=== PATIENT | female | born 1975 ===

== ENCOUNTER 2016-12-07 04:18 | Inpatient (IN) | payer MEDICAID ==
--- NOTE | 2016-12-07 04:38 | ED PDOC ---
Arrival/HPI - General Chief Complaint: Medical Clearance Time Seen by Provider: 12/07/16 04:24 Historian: Patient - History of Present Illness Narrative History of Present Illness (Text): 12/07/16 04:31 Sally Grady is a 41 year old female who presents to the emergency department from [facility]. Patient was accepted under 's service prior to transfer. At emergency department, patient denies any somatic complaints. Symptom Course: Unchanged Severity Level: Mild Activities at Onset: Light Past Medical History - Provider Review Nursing Documentation Reviewed: Yes - Infectious Disease Hx of Infectious Diseases: None - Cardiac Hx Cardiac Disorders: No Hx Hypertension: Yes - Pulmonary Hx Tuberculosis: No - Neurological HX Cerebrovascular Accident: No Hx Seizures: No - HEENT Hx HEENT Disorder: Yes - Renal Hx Renal Disorder: No - Endocrine/Metabolic Hx Hypothyroidism: Yes - Hematological/Oncological Hx Cancer: No - Integumentary Hx Dermatological Disorder: No - Musculoskeletal/Rheumatological Hx Arthritis: Yes - Gastrointestinal Hx Gastrointestinal Disorders: Yes Hx Gastroesophageal Reflux: Yes - Genitourinary/Gynecological Hx Sexually Transmitted Diseases: No - Psychiatric Hx Anxiety: Yes Hx Depression: Yes Hx Post Traumatic Stress Disorder: Yes Hx Schizophrenia: Yes Hx Substance Use: No - Surgical History Hx Tonsillectomy: Yes - Anesthesia Hx Anesthesia: Yes Hx Anesthesia Reactions: No Hx Malignant Hyperthermia: No - Suicidal Assessment Feels Threatened In Home Enviroment: No Family/Social History - Physician Review Nursing Documentation Reviewed: Yes Family/Social History: No Known Family HX Smoking Status: Heavy Smoker > 10 Cigarettes Daily Hx Alcohol Use: Yes (''Occassional'') Hx Substance Use: No Allergies/Home Meds Allergies/Adverse Reactions: Allergies cefazolin sodium [From Anc] Allergy (Verified 12/07/16 06:42) RASH Penicillins Allergy (Verified 12/07/16 06:42) RASH Home Medications: Home Meds Medication Instructions Recorded Confirmed Zolpidem [Ambien] 10 mg PO HS 10/13/16 12/07/16 Calcium Carbonate [Oscal] 500 mg PO DAILY 12/04/16 12/06/16 Topamax 100 mg PO BID 12/04/16 12/07/16 Cyclobenzaprine [Cyclobenzaprine 10 mg PO TID 12/07/16 12/07/16 HCl] Furosemide [Lasix] 20 mg PO DAILY 12/07/16 12/07/16 Gabapentin [Neurontin] 100 mg PO TID 12/07/16 12/07/16 K-Dur 20 mEq ER Tab 10 meq PO DAILY 12/07/16 12/07/16 Levothyroxine [Synthroid] 112 mcg PO 0630 12/07/16 12/07/16 Montelukast [Singulair] 10 mg PO DAILY 12/07/16 12/07/16 Sulfamethoxazole/Trimethoprim 1 tab PO BID 12/07/16 12/07/16 [Bactrim DS 800 mg-160 mg] Topiramate [Topamax] 50 mg PO BID 12/07/16 12/07/16 Tylenol with Codeine #3 Tablet 1 tab PO TID PRN 12/07/16 12/07/16 traZODone [Desyrel] 50 mg PO HS 12/07/16 12/07/16 Review of Systems - Physician Review All systems were reviewed & negative as marked: Yes - Review of Systems Constitutional: Normal. absent: Fatigue, Fevers Respiratory: Normal. absent: SOB, Cough, Sputum Cardiovascular: Normal. absent: Chest Pain, Palpitations Gastrointestinal: Normal. absent: Diarrhea, Nausea, Vomiting Neurological: Normal. absent: Dizziness Psychiatric: Other (schizophrenia ) Physical Exam Vital Signs Reviewed: Yes Vital Signs Temp Pulse Resp BP Pulse Ox 12/07/16 16:10 107 H 136/86 12/07/16 08:41 132/86 12/07/16 07:36 98.8 F 95 H 20 132/86 12/07/16 06:40 16 12/07/16 04:29 98.8 F 101 H 18 112/76 99 Temperature: Afebrile Blood Pressure: Normal Pulse: Tachycardic Respiratory Rate: Normal Appearance: Positive for: Well-Appearing, Non-Toxic, Comfortable Pain Distress: None Mental Status: Positive for: Alert and Oriented X 3 - Systems Exam Head: Present: Atraumatic, Normocephalic Pupils: Present: PERRL Conjunctiva: Present: Normal Mouth: Present: Moist Mucous Membranes Respiratory/Chest: Present: Clear to Auscultation, Good Air Exchange. No: Respiratory Distress, Accessory Muscle Use Cardiovascular: Present: Regular Rate and Rhythm, Normal S1, S2. No: Murmurs Abdomen: Present: Normal Bowel Sounds. No: Tenderness, Distention, Peritoneal Signs Upper Extremity: Present: Normal Inspection. No: Cyanosis, Edema Lower Extremity: Present: Normal Inspection. No: Edema Neurological: Present: GCS=15, CN II-XII Intact, Speech Normal, Motor Func Grossly Intact, Normal Sensory Function Psychiatric: Present: Alert, Oriented x 3. No: Normal Affect (flat affect ) Medical Decision Making ED Course and Treatment: 12/07/16 04:38 Impression: A 41 year old female who presents to the emergency department [facility]. Progress Notes: 12/07/16 04:39 Patient is medically cleared for admission to the the hospital. Will admit patient. - Medication Orders Current Medication Orders: Acetaminophen (Tylenol 325mg Tab) 650 mg PO Q6H PRN PRN Reason: Pain, Mild (1-3) Al Hydrox/Mg Hydrox/Simethicone (Maalox Plus 30 Ml) 30 ml PO DAILY PRN PRN Reason: Upset Stomach Albuterol (Ventolin Hfa 90 Mcg/Actuation (8 G)) 2 puff IH [id number] PRN PRN Reason: Wheezing Bupropion HCl (Wellbutrin Xl) 300 mg PO DAILY [facility] Last Admin: 12/07/16 08:41 Dose: 300 mg Cyclobenzaprine HCl (Flexeril) 10 mg PO TID [facility] Last Admin: 12/07/16 17:52 Dose: 10 mg Docusate Sodium (Colace) 100 mg PO BID [facility] Last Admin: 12/07/16 17:52 Dose: 100 mg Furosemide (Lasix) 20 mg PO DAILY [facility] Last Admin: 12/07/16 08:41 Dose: 20 mg Gabapentin (Neurontin) 100 mg PO TID [facility] PRN Reason: Protocol Last Admin: 12/07/16 17:52 Dose: 100 mg Levothyroxine Sodium (Synthroid) 112 mcg PO ACB [facility] Last Admin: 12/07/16 08:41 Dose: 112 mcg Lorazepam (Ativan) 0.5 mg PO TID [facility] PRN Reason: Protocol Last Admin: 12/07/16 17:53 Dose: 0.5 mg Magnesium Hydroxide (Milk Of Magnesia) 30 ml PO DAILY PRN PRN Reason: Constipation Montelukast Sodium (Singulair) 10 mg PO HS [facility] Nicotine (Nicoderm Cq) 1 patch TD DAILY [facility] Potassium Chloride (Klor-Con 10) 10 meq PO BRK [facility] Last Admin: 12/07/16 09:15 Dose: 10 meq Fluticasone/Salmeterol (Advair Diskus 500/50) 1 puff INH Q12 [facility] Last Admin: 12/07/16 17:54 Dose: 1 puff Topiramate (Topamax) 50 mg PO BID [facility] PRN Reason: Protocol Last Admin: 12/07/16 17:52 Dose: 50 mg Trazodone HCl (Desyrel) 50 mg PO HS [facility] Ziprasidone (Geodon Cap) 20 mg PO BID [facility] PRN Reason: Protocol Last Admin: 12/07/16 17:53 Dose: 20 mg Ziprasidone (Geodon Cap) 20 mg PO HS [facility] PRN Reason: Protocol Zolpidem Tartrate (Ambien) 5 mg PO HS PRN; Protocol PRN Reason: Insomnia - Scribe Statement The provider has reviewed the documentation as recorded by the Matilde Washington Provider Attestation: All medical record entries made by the Matilde were at my direction and personally dictated by me. I have reviewed the chart and agree that the record accurately reflects my personal performance of the history, physical exam, medical decision making, and the department course for this patient. I have also personally directed, reviewed, and agree with the discharge instructions and disposition. Disposition/Present on Arrival - Present on Arrival Any Indicators Present on Arrival: No History of DVT/PE: No History of Uncontrolled Diabetes: No Urinary Catheter: No History of Decub. Ulcer: No History Surgical Site Infection Following: None - Disposition Have Diagnosis and Disposition been Completed?: Yes Diagnosis: Depression Disposition: HOSPITALIZED Disposition Time: 04:40 Condition: FAIR
[2016-12-07] MEDS ORDERED: Magnesium Hydroxide Susp 30 ml UD PO PRN (06:40)
[2016-12-07] MEDS ORDERED: Alum-Mag Hydrox-Simethicone Susp (30 mL) PO PRN (06:40)
[2016-12-07] MEDS: Levothyroxine 112 MCG TAB PO SCH (08:41)
[2016-12-07] MEDS: buPROPion 300 mg/24 Hours XL Tab PO SCH (08:41)
[2016-12-07 08:46] LABS: CHOLESTEROL 170 mg/dL (130-200); GLUCOSE,FASTING 98 mg/dL (65-110)
[2016-12-07 09:03] LABS: FREE T4 0.95 ng/dL (0.78-2.19)
[2016-12-07] MEDS: Potassium Chloride 10 mEq ER Tab PO SCH (09:15)
[2016-12-07 09:17] LABS: THYROID STIMULATING HORMONE 15.4 mIU/mL (0.46-4.68)
--- NOTE | 2016-12-07 15:19 | PCM.PSYCH ---
Initial Psychiatric Evaluation - Initial Psychiatric Evaluation Type of Admission: Voluntary Legal Status: Capacity (Patient has capacity to sign consent for treatment) Chief Complaint (in patient's own words): "you know my head was not clear, I have learning disabilities..." Patient's Reaction to Hospitalization: pt was admitted for psychosis, inability to function, pt was on catatonic stage. History of Present Illness and Precipitating Events: shortly patient is 41 years old female not known previous history of psychiatric history, not known previous psychiatric admissions, patient has some new group cognitive disorder, possible learning disabilities, patient currently under care of [facility] [place] outpatient clinic, came to the emergency at [facility] saying that she "my head is not clear" patient presented to be disorganized, flat affect, in catatonic stage, patient was transferred to [facility] because [facility] had no beds available. Patient needs to have further evaluation, stabilization, medications adjustment. pt was seen at the tx team meeting, pt presented in catatonic stage, flat affect , had difficulties to express herself, pt also has poverty of speech and thoughts, thought blocking. pt obviously has neurocognitive deficit and some learning disabilities, pt was going to special ED class. pt has acceptable personal hygiene, at the same time seems to be careless about her appearance. Patient has fair ADLs. Patient ambulates with a walker, patient has unstable gait, patient seems to be obese. Patient said "I was hearing voices dear are like a game" patient reports that voices are positive and telling her to do good stuff, patient has tendency of following on voices. Patient also observed to be internally preoccupied responding to internal stimuli patient also was keep watching her back it says like he shouldn't has some hallucinations during the interview, patient also requested door to be closed presented to be paranoid. pt reported to be depressed, reports that "sometimes I want to ", patient denied any thoughts of killing herself denied intent. Patient reported being compliant with the medications, patient reported that Abilify was not that helpful wants to try something else [place] was offered, risk, benefits, alternatives explained. Patient also was on Neurontin 300 mg 3 times a day, Colace 100 mg twice a day, Synthroid 100 g daily, Protonix 40 mg daily pantoprazole 40 mg daily Topamax twice a day and Wellbutrin 300 mg daily and Ambien 10 mg at the nighttime. Patient is willing to adjust her medications. Vision denied using drugs, reported smoking cigars pack a day counseling provided, nicotine patch offered. Patient was not able to provide information about previous hospitalizations. Denied family history of mental illness Patient denied history of being abused Has multiple medical issues including obesity, unsteady gait, sleep apnea. One EKG patient has QTc prolongation, cardiology, pulmonology, medical team will be involved. geodone is dose dependent QTC prolognation, pt will be on small dose. Lab Results 12/07/16 08:00: Free T4 0.95, TSH 3rd Generation 15.40 H 12/07/16 08:00: Fasting Glucose 98, Triglycerides 119, Cholesterol 170, LDL Cholesterol Direct 71, HDL Cholesterol 68 H Vital Signs Temp Pulse Resp BP Pulse Ox 12/07/16 08:41 132/86 12/07/16 07:36 98.8 F 95 H 20 132/86 12/07/16 06:40 16 12/07/16 04:29 98.8 F 101 H 18 112/76 99 Current Medications: Active Medications Generic Name Dose Route Start Last Admin Trade Name Freq PRN Reason Stop Dose Admin Acetaminophen 650 mg 12/07/16 06:40 Tylenol 325mg Tab PO Q6H PRN Pain, Mild (1-3) Al Hydrox/Mg Hydrox/Simethicone 30 ml 12/07/16 06:40 Maalox Plus 30 Ml PO DAILY PRN Upset Stomach Bupropion HCl 300 mg 12/07/16 08:15 12/07/16 08:41 Wellbutrin Xl PO 300 mg DAILY [facility] Administration Docusate Sodium 100 mg 12/07/16 08:15 12/07/16 08:41 Colace PO 100 mg BID [facility]LE[facility] Administration Furosemide 20 mg 12/07/16 08:15 12/07/16 08:41 Lasix PO 20 mg DAILY [facility] Administration Gabapentin 100 mg 12/07/16 08:10 12/07/16 13:54 Neurontin PO 100 mg TID [facility] Administration Protocol Levothyroxine Sodium 112 mcg 12/07/16 08:15 12/07/16 08:41 Synthroid PO 112 mcg ACB [facility] Administration Lorazepam 0.5 mg 12/07/16 13:00 12/07/16 13:54 Ativan PO 0.5 mg TID [facility] Administration Protocol Magnesium Hydroxide 30 ml 12/07/16 06:40 Milk Of Magnesia PO DAILY PRN Constipation Montelukast Sodium 10 mg 12/07/16 22:00 Singulair PO HS [facility] Nicotine 1 patch 12/07/16 14:00 Nicoderm Cq TD DAILY [facility] Potassium Chloride 10 meq 12/07/16 08:15 12/07/16 09:15 Klor-Con 10 PO 10 meq BRK [facility]LE[facility] Administration Topiramate 50 mg 12/07/16 08:15 12/07/16 08:41 Topamax PO 50 mg BID WILLEM Administration Protocol Trazodone HCl 50 mg 12/07/16 22:00 Desyrel PO HS [facility] Ziprasidone 20 mg 12/07/16 16:00 Geodon Cap PO BID [facility] Protocol Ziprasidone 20 mg 12/07/16 22:00 Geodon Cap PO HS [facility] Protocol Zolpidem Tartrate 5 mg 12/07/16 08:09 Ambien PO HS PRN Insomnia Protocol Past Psychiatric History - Past Psychiatric History Prior Professional Help: see HPI Prior Psychiatric Treatment: see HPI At what hospital: see HPI Duration: see HPI Nature of Treatment: see HPI Explanation of prior treatment: see HPI History of Abuse: see HPI History of ETOH/Drug Use: see HPI History of Family Illness: see HPI Pertinent Medical Hx (Current Medical&Sleep Prob, Allergies): Allergies Allergy/AdvReac Type Severity Reaction Status Date / Time cefazolin sodium [From Ancef] Allergy RASH Verified 12/07/16 06:42 Penicillins Allergy RASH Verified 12/07/16 06:42 Zolpidem [Ambien] 10 mg PO HS 10/13/16 ARIPiprazole [Abilify] 10 mg PO HS #30 tab 10/17/16 Docusate [Colace] 100 mg PO BID PRN #30 cap 10/17/16 buPROPion XL [Wellbutrin XL] 300 mg PO DAILY 30 Days 10/17/16 Calcium Carbonate [Oscal] 500 mg PO DAILY 12/04/16 Topamax 100 mg PO BID 12/04/16 Cyclobenzaprine [Cyclobenzaprine HCl] 10 mg PO TID 12/07/16 Furosemide [Lasix] 20 mg PO DAILY 12/07/16 Gabapentin [Neurontin] 100 mg PO TID 12/07/16 K-Dur 20 mEq ER Tab 10 meq PO DAILY 12/07/16 Levothyroxine [Synthroid] 112 mcg PO 0630 12/07/16 Montelukast [Singulair] 10 mg PO DAILY 12/07/16 Sulfamethoxazole/Trimethoprim [Bactrim DS 800 mg-160 mg] 1 tab PO BID 12/07/16 Topiramate [Topamax] 50 mg PO BID 12/07/16 Tylenol with Codeine #3 Tablet 1 tab PO TID PRN 12/07/16 traZODone [Desyrel] 50 mg PO HS 12/07/16 Review of Systems - Review of Systems Systems not reviewed;Unavailable: Acuity of Condition - EENT Eyes: As Per HPI Ears: As Per HPI Nose/Mouth/Throat: As Per HPI - Breasts Breasts: As Per HPI - Cardiovascular Cardiovascular: As Per HPI - Respiratory Respiratory: As Per HPI - Gastrointestinal Gastrointestinal: As Per HPI - Genitourinary Genitourinary: As Per HPI - Reproductive: Female Reproductive:Female: As Per HPI - Menstruation Menstruation: As Per HPI - Musculoskeletal Musculoskeletal: As Par HPI - Integumentary Integumentary: As Per HPI - Neurological Neurological: As Per HPI - Psychiatric Psychiatric: As Per HPI - Hematologic/Lymphatic Hematologic: As Per HPI Mental Status Examination - Personal Presentation Personal Presentation: Looks older than stated age - Affect Affect: Flat - Motor Activity Motor Activity: Psychomotor Retardation - Reliability in Providing Information Reliability in Providing Information: Poor, due to alteration in thoughts, Poor , due to altered mood, Poor, due to cognitve impairment - Speech Speech: Disorganized - Mood Mood: Depressed, Anxious - Formal Thought Process Formal Thought Process: Hallucinations, Delusions, Paranoia, Loosening of associations - Hallucinations/Delusions Hallucinations: Visual, Auditory Delusions: Persecution - Obsessions/Compulsions Obsessions: None Compulsions: None - Cognitive Functions Orientation: Person Sensorium: Alert Attention/Concentration: Easily distracted Abstract Thinking: [place] Estimate of Intelligence: Below average Judgement: Intact, as evidence by: Insight regarding need for hospitalization - Risk Risk: Self-mutilation, Diminished functioning - Strength & Assets Inventory Strength & Assets Inventory: Family support, Cooperative - Limitations Limitations: Other (multiple medical problems) DSM 5 DX - DSM 5 DSM 5 Diagnosis: rule out schizoaffective disorder Rule out schizophrenia spectrum disorder with catatonia - Recommended/Plan of Treatment Treatment Recommendations and Plan of Treatment: milieu, structure, supportive therapy Abilify will be discontinued Geodon 20 mg 3 times a day for psychosis and mood stabilization Wellbutrin will be continued 300 mg daily Neurontin be continued 100 mg 3 times a day Ambien 5 mg as needed for insomnia Topamax will be continued 50milligrams twice a day Colace will be continued 100 mg twice a day Cyclobenzaprine [Cyclobenzaprine HCl] 10 mg PO TID will be continued Furosemide [Lasix] 20 mg PO DAILY will be continued K-Dur 20 mEq ER Tab 10 meq PO DAILY will be continued Levothyroxine [Synthroid] 112 mcg PO will be continued Montelukast [Singulair] 10 mg PO DAILY will be continued traZODone [Desyrel] 50 mg PO HS scheduled medical team evaluation pulmonology eval ?neurology eval, pt has h/o migraine [facility] cardiology consult QTC prolongation SW evaluation will monitor closely Projected ELOS: 7 days Prognosis: fair Discharge Plan and Discharge Criteria: Pt will be not depressed or manic, will be more hopeful, will be not psychotic or anxious, will be not having thoughts of harming self or others, will be tolerating medications well, will not have major side effects, will be able to function, will not pose threat to self or others. - Smoking Cessation Smoking Cessation Initiated: Yes
[2016-12-07] MEDS ORDERED: Albuterol HFA 90 mcg/actuation (8 g) IH PRN (16:10)
[2016-12-07] MEDS: Fluticasone-Salmeterol 500-50mcg Diskus INH SCH (17:54)
--- NOTE | 2016-12-07 20:00 | CON ---
DATE: 12/07/2016 REFERRING PHYSICIAN: Dr. Tonie Tavares. REASON FOR CONSULT: Chronic obstructive lung disease, obesity, sleep apnea syndrome. HISTORY OF PRESENT ILLNESS: This is a 41-year-old female with past medical history significant for c hronic obstructive lung disease, does not have a CPAP at present time, morbid obesity, chronic lung d lacy, who recently presented to [facility] Emergency Room, was transferred to psych unit at [facility] under Dr. Schilling's service for schizophrenia. She admits to having loud snoring a t nighttime, daytime sleepy and tired. Falls asleep during the daytime. Short of breath with minima l exertion. No hemoptysis, no hematemesis, no hematuria, no diarrhea reported. PAST MEDICAL HISTORY: Schizophrenia, morbid obesity, hypothyroidism, chronic lung disease, has degen erative joint disease, history of GERD, anxiety disorder and depression. ALLERGIES: CEFAZOLIN AND PENICILLIN. OUTPATIENT MEDICATIONS: She has been on Ambien, calcium, Protonix, potassium, and Topamax. FAMILY HISTORY: No significant cardiopulmonary disease reported. SOCIAL HISTORY: Active smoker. Denies any alcohol use. MEDICATIONS: At present, she is on Ambien 5 mg at bedtime, Ativan 0.5 mg 3 times a day, Colace 100 m g twice a day, trazodone 50 mg daily, Flexeril 10 mg 3 times a day, Geodon 20 mg twice a day, Geodon 20 mg at bedtime, potassium 10 mEq daily, Lasix 20 mg daily, MiraLax 30 mL daily p.r.n., Neurontin 10 0 mg 3 times a day, Nicoderm patch daily, Singulair 10 mg daily, Synthroid 212 mcg daily, Toprol-XL 5 0 mg twice a day, Tylenol on a p.r.n. basis, Wellbutrin 300 mg daily. REVIEW OF SYSTEMS: No headache, no rhinitis. Has mild cough, short of breath with exertion. Admits to have snoring, daytime sleepy and tired. No chest pain, no nausea, no vomiting, no diarrhea. No d ysuria, no leg swelling. PHYSICAL EXAMINATION: GENERAL: Sitting up on side of the bed, no acute distress. VITAL SIGNS: Temp is 98, heart rate is 95, respiratory rate is 20, blood pressure 132/86. HEENT: Moist mucous membrane. Crowded airway. Mallampati score is 4. NECK: Supple. No JVD. LUNGS: Has a fair airflow with rhonchi. HEART: S1, S2. ABDOMEN: Soft, nontender. No organomegaly. EXTREMITIES: There is trace edema. NEUROLOGIC: Awake, alert, follows simple commands. LABORATORY DATA: Shows glucose is 98. Triglyceride 119, cholesterol is 170, T4 free is 0.95. TSH i s 15.4. IMPRESSION AND PLAN: Schizophrenia, morbid obesity, sleep apnea syndrome, chronic lung disease, hypo thyroid. Case discussed with Dr. Schilling. Agree with the present treatment. We will place her on CPAP 8 cm while sleeping. May use nasal mask. Add Advair 500/50 one puff twice a day, Ventolin 2 puffs q. 4 hours p.r.n. Keep head elevated at 45 degrees. Sleep apnea precautions. Careful with sedation . Fall precautions. Will recommend attended sleep study upon discharge as outpatient. The patient is urged to stop smoking. Needs pulmonary function test as outpatient. We will follow with you. Lefty Phipps MD cc: [id number] TT: 12/07/2016 19:59:09 Confirmation # [id number] Dictation # [id number] hattie
[2016-12-08 07:09] LABS: ADD MANUAL DIFF? NO
[2016-12-08 07:14] LABS: BASO # 0.03 K/mm3 (0.0-2.0); BASO % 0.4 % (0.0-3.0); EOS # 0.1 (0.0-0.7); EOS % 1.3 % (1.5-5.0); GRAN # 4.83 (1.4-6.5); GRAN % 65.3 % (50.0-68.0); HEMATOCRIT 45.1 % (36.0-48.0); LYMPH # 1.9 (1.2-3.4); LYMPH % 25.2 % (22.0-35.0); MEAN CELL VOLUME 94.4 fL (80.0-105.0); MEAN CORPUSCULAR HEMOGLOBIN 32.6 pg (25.0-35.0); MEAN CORPUSCULAR HGB CONC 34.6 g/dl (31.0-37.0); MEAN PLATELET VOLUME 9.9 fl (7.0-11.0); MONO # 0.6 (0.1-0.6); MONO % 7.8 % (1.0-6.0); PLATELET COUNT 253 10^3/uL (120.0-450.0); RED CELL DISTRIBUTION WIDTH 14.6 % (11.5-14.5); WHITE BLOOD COUNT 7.4 10^3/ul (4.5-11.0)
--- NOTE | 2016-12-08 08:07 | CON ---
DATE: 12/07/2016 REASON FOR CONSULTATION: Preop evaluation, abnormal stress test, admitted to psychiatric floor. BRIEF CLINICAL HISTORY: This is a 41-year-old female with a past medical history significant for an anxiety disorder, arthritis, asthma, COPD, depression, diabetes, fibromyalgia, Graves' disease, hyper tension, ____, post-traumatic stress disorder and schizophrenia, admitted to the psych floor for laurie tment of schizophrenia. EKG read as a prolong QT interval so cardiology consult was called. The pat ient denies any chest pain, shortness of breath, any palpitation. PAST HISTORY: As mentioned, significant for an anxiety, arthritis, asthma, COPD, depression, diabete s mellitus, fibromyalgia, Graves' disease, ____, hypertension, post-traumatic stress disorder, schizo phrenia. PAST SURGICAL HISTORY: Significant for tonsillectomy in the past. SOCIAL HISTORY: Denies any smoking. Denies any history of alcohol abuse. FAMILY HISTORY: Nonsignificant. Denies any history of coronary artery disease. CURRENT MEDICATIONS: The patient at home was taking trazodone, Wellbutrin, Ambien, Topamax, gabapent in, furosemide, Abilify. REVIEW OF SYSTEMS: As per HPI. ALLERGIES: CEFAZOLIN SODIUM, ANCEF AND PENICILLIN. REVIEW OF SYSTEMS: As per HPI. A 14 point review of systems negative except as per HPI. PHYSICAL EXAMINATION: As follows: VITAL SIGNS: Temperature afebrile, heart rate ____, blood pressure 132/86. HEENT: PERRLA. Extraocular muscles intact. NECK: Supple. No carotid bruits. No thyromegaly. CHEST: Clear to auscultation. HEART: S1, S2 regular. ABDOMEN: Soft. EXTREMITIES: Clubbing and cyanosis negative. BLOOD WORKUP: WBC ____, hemoglobin 15.9, hematocrit 46.4, platelet count 267. Chemistry shows sodiu m 130, potassium 5, chloride 102, carbon dioxide 22, anion gap of 13, BUN 6, creatinine 0.8, TSH 15.4 . IMPRESSION: ____, morbid obesity. EKG, normal sinus, ____ corrected QT appears okay. Increased bod y mass index, obesity, of 46.8 kg/m2. TSH elevated, ____, morbid obesity. RECOMMENDATION: We will get echo to assess LV function and rule out any structural heart disease. F or risk stratification, consider stress test when the patient is mentally stable. The patient is not in mood to talk. He does not want to give any detailed history and also mentioned that does not wan t any test now. We will follow with you. Thank you, Dr. Tavares for providing the opportunity in taking care of the patient. We will foll ow with you. Lefty Heredia MD cc: [id number] TT: 12/07/2016 20:25:19 Confirmation # [id number] Dictation # [id number]
[2016-12-08 08:10] LABS: ALB/GLOB RATIO 1.3 (1.1-1.8); ALKALINE PHOSPHATASE 130 U/L (38-133); ALT/SGPT 39 U/L (7-56); AST/SGOT 41 U/L (15-39); BILIRUBIN,TOTAL 0.7 mg/dL (0.2-1.3); BLOOD UREA NITROGEN 7 mg/dL (7-21); CALCIUM 9.1 mg/dL (8.4-10.5); CARBON DIOXIDE 22 mmol/L (21-33); CHLORIDE 112 mmol/L (98-107); GFR AFRICAN-AMERICAN > 60; GLUCOSE,RANDOM 93 mg/dL (70-110); MAGNESIUM 2.5 mg/dL (1.7-2.2); PHOSPHOROUS 3.4 mg/dL (2.5-4.5); POTASSIUM 3.9 mmol/L (3.6-5.0); SODIUM 142 mmol/L (132-148); TOTAL PROTEIN 6.3 g/dL (5.8-8.3)
[2016-12-08] MEDS: Fluticasone-Salmeterol 500-50mcg Diskus INH SCH ×2 (09:44→17:33)
[2016-12-08] MEDS: buPROPion 300 mg/24 Hours XL Tab PO SCH (09:45)
[2016-12-08] MEDS: Levothyroxine 112 MCG TAB PO SCH (09:46)
[2016-12-08 10:58] LABS: ALB/GLOB RATIO 1.2 (1.1-1.8); BILIRUBIN,DIRECT 0.3 mg/dL (0.0-0.4); BILIRUBIN,TOTAL 0.6 mg/dL (0.2-1.3)
--- NOTE | 2016-12-08 13:29 | CON ---
DATE: 12/07/2016 The patient was seen and examined on 12/07/2016. CHIEF COMPLAINT: History of COPD, obesity. HISTORY OF PRESENT ILLNESS: The patient is a 41-year-old female with past medical history of chronic obstructive lung disease, obesity, was seen by [facility], transferred to [facility], accepted by Dr. Tonie Tavares's service for schizophrenia. The patient was seen in her room. No nausea, v omiting, diarrhea. No hematuria, no hematochezia. Sleepy. No headache, no dizziness. PAST MEDICAL HISTORY: Schizophrenia, obesity, hypothyroidism, chronic lung disease, has degenerative joint disease, GERD, dyspepsia, anxiety, depression. ALLERGIES: THE PATIENT IS ALLERGIC WITH CEFAZOLIN AND PENICILLIN. HOME MEDICATIONS: Ambien, calcium, Protonix, potassium and Topamax. FAMILY HISTORY: Father and mother noncontributory. HABITS: Active smoker. No alcohol, no drugs as per patient. REVIEW OF SYSTEMS: The patient was seen and examined on the bedside on 12/07/2016 in her room. Sleep y. No nausea, vomiting, diarrhea. No hematuria, no hematochezia. No swelling of the legs. No shor tness of breath, no dyspnea. PHYSICAL EXAMINATION: VITAL SIGNS: Temperature 98, heart rate 95, respiratory rate 20, blood pressure 132/86. HEENT: Head normocephalic, atraumatic. Eyes, PERRLA. Extraocular muscles intact. Conjunctivae nica ar. Nose patent. NECK: Supple. No carotid bruit, no JVD, no thyromegaly. CHEST: Bilaterally symmetrical. HEART: S1, S2 positive. LUNGS: Clear to auscultation. ABDOMEN: Soft. Bowel sounds positive. No organomegaly. EXTREMITIES: No edema, no cyanosis. NEUROLOGIC: The patient is awake, alert. Moving all 4 extremities. No focal deficits. LABORATORIES: White blood cells 7.4, hemoglobin 15.6, hematocrit 45.1, platelets 253. Sodium 142, p otassium 3.9, BUN 7, creatinine 0.8, magnesium 2.5, AST 41. TSH 15.40. RPR nonreactive. ASSESSMENT AND PLAN: The patient is a 41-year-old lady with hyperchloremia, hypermagnesemia, abnorma l liver function tests, hypothyroidism, needs adjustment of her levothyroxine, RPR negative, history of chronic obstructive pulmonary disease, obstructive sleep apnea, obesity, schizophrenia, was transf erred from [facility] to [facility] under Dr. Tonie Tavares's service. Discussion done with Dr. Tonie Tavares. Reviewed Dr. Phipps's notes. Needs CPAP while sleeping. Dr. Phipps added Advair , Ventolin. Urged to quit smoking. Seen by Dr. Heredia, training administrator. Dr. Heredia is planning to do echo to assess left ventricular function, rule out structural heart disease. I think she had some workup done in [facility]. Last time she was admitted in [facility] for QT interval prolongation and was cleared b y the training administrator. The patient is not a good historian. Medically, patient is stable from my point of view. Care Coordinator and hoisting engineer are on the case. Getting nicotine patch. Will increase le vothyroxine from 112 to 125. We will repeat a TSH after a couple of weeks. I will sign off the case . Discussion done with Dr. Tonie Tavares. If need, call me as p.r.n. basis please. Jaleesa Vaca MD cc: [id number] TT: 12/08/2016 11:50:28 Confirmation # [id number] Dictation # [id number] en
[2016-12-08] MEDS: Potassium Chloride 10 mEq ER Tab PO SCH (14:20)
--- NOTE | 2016-12-08 15:20 | PCM.PYCHPN ---
Psychiatric Progress Note - Psychiatric Progress Note Patient seen today, length of contact: 30 minutes Patient Chief Complaint: "I'm asking U police stealing my thoughts?" Problems Identified/Issues Discussed: Suicide/ homicide prevention, past psychiatric h/o, current psychiatric symptoms , medical problems, risk/benefits and alternatives of medications, medications compliance, coping strategies, substance abuse h/o, relapse prevention, importance of follow up with psychiatrist and therapist, discharge plan. Medical Problems: see HPI Diagnostic Results: 12/08/16 06:00 12/08/16 06:00 Lab Results 12/08/16 10:30: Total Bilirubin 0.6, Direct Bilirubin 0.3, AST 49 H, ALT 37, Alkaline Phosphatase 118, Total Protein 7.0, Albumin 3.9, Globulin 3.2, Albumin/ Globulin Ratio 1.2, Triglycerides 109, Cholesterol 159, LDL Cholesterol Direct 73, HDL Cholesterol 64 H 12/08/16 06:00: Hemoglobin A1c 5.4 12/08/16 06:00: Sodium 142, Potassium 3.9, Chloride 112 H, Carbon Dioxide 22, Anion Gap 12, BUN 7, Creatinine 0.8, Est GFR ( Amer) > 60, Est GFR (Non- Af Amer) > 60, Random Glucose 93, Calcium 9.1, Phosphorus 3.4, Magnesium 2.5 H, Total Bilirubin 0.7, AST 41 H, ALT 39, Alkaline Phosphatase 130, Total Protein 6.3, Albumin 3.5, Globulin 2.8, Albumin/Globulin Ratio 1.3 12/08/16 06:00: WBC 7.4, RBC 4.78, Hgb 15.6, Hct 45.1, MCV 94.4, MCH 32.6, MCHC 34.6, RDW 14.6 H, Plt Count 253, MPV 9.9, Gran % 65.3, Lymph % (Auto) 25.2, [place] % (Auto) 7.8 H, Eos % (Auto) 1.3 L, Baso % (Auto) 0.4, Gran # 4.83, Lymph # 1.9, [place] # 0.6, Eos # 0.1, Baso # 0.03 12/07/16 08:00: RPR Nonreactive 12/07/16 08:00: Free T4 0.95, TSH 3rd Generation 15.40 H 12/07/16 08:00: Fasting Glucose 98, Triglycerides 119, Cholesterol 170, LDL Cholesterol Direct 71, HDL Cholesterol 68 H Vital Signs Temp Pulse Resp BP Pulse Ox 12/08/16 09:46 122/75 12/08/16 07:42 97.9 F 95 H 20 122/75 12/08/16 00:50 88 12/07/16 16:10 107 H 136/86 12/07/16 08:41 132/86 12/07/16 07:36 98.8 F 95 H 20 132/86 12/07/16 06:40 16 12/07/16 04:29 98.8 F 101 H 18 112/76 99 DSM 5 Symptoms Update: shortly patient is 41 years old female not known previous history of psychiatric history, not known previous psychiatric admissions, patient has some new group cognitive disorder, possible learning disabilities, patient currently under care of [facility] outpatient clinic, came to the emergency at [facility] saying that she "my head is not clear" patient presented to be disorganized, flat affect, in catatonic stage, patient was transferred to [facility] because [facility] had no beds available. Patient needs to have further evaluation, stabilization, medications adjustment. pt was seen at the tx team room, pt presented in catatonic stage, flat affect, had difficulties to express herselfbut some improvement. patient presented to be disorganized, psychotic, had feeling that somebody stealing her thoughts, but at the same time patient is more expressive, affect is more reactive. Patient tolerates medication well, no side effects observed or reported, aims 0 , no EPS. As per nursing report patient is compliant with her medications no behavioral incident. Impression: Schizoaffective disorder Medication Change: Yes (Geodon increased) Medical Record Reviewed: Yes Consults ordered or reviewed: medical consult appreciated Mental Status Examination - Cognitive Function Orientation: Person Memory: Impaired Attention: Poor Concentration: Poor Association: Loose - Mood Mood: Depressed, Anxious - Affect Affect: Flat - Speech Speech: Appropriate (slow low-volume) - Formal Thought Process Formal Thought Process: Hallucinations, Delusions, Paranoia, Loosening of associations - Suicidal Ideation Suicidal Ideation: No - Homicidal Ideation Homicidal Ideation: No Goal/Treatment Plan - Goal/Treatment Plan Need for Continued Stay: Remain at risks for inpatient hospitalization, Severe depression anxiety, Discharge may exacerbated symptoms, Severe functional impairment Progress Toward Problem(s) and Goals/Treatment Plan: milieu, structure, supportive therapy Abilify will be discontinued Geodon mg twice a day for psychosis and mood stabilization Wellbutrin will be continued 300 mg daily Neurontin be continued 100 mg 3 times a day Ambien 5 mg as needed for insomnia Topamax will be continued 50milligrams twice a day Colace will be continued 100 mg twice a day Cyclobenzaprine [Cyclobenzaprine HCl] 10 mg PO TID will be continued Furosemide [Lasix] 20 mg PO DAILY will be continued K-Dur 20 mEq ER Tab 10 meq PO DAILY will be continued Levothyroxine [Synthroid] 112 mcg PO will be continued Montelukast [Singulair] 10 mg PO DAILY will be continued traZODone [Desyrel] 50 mg PO HS scheduled medical team evaluation pulmonology eval ?neurology eval, pt has h/o migraine [facility] cardiology consult QTC prolongation SW evaluation will monitor closely Estimated Date of D/C: 12/14/16 (we'll monitor closely)
--- NOTE | 2016-12-08 21:22 | PN ---
DATE: 12/08/2016 REFERRING PHYSICIAN: Dr. Tonie Tavares. SUBJECTIVE: She is wheeling her chair in the hallway, feels better, tolerated BiPAP well last night. Breathing is better. Does not love the Advair but used it. No nausea, no vomiting, no diarrhea. No leg pain or leg swelling. OBJECTIVE: GENERAL: No acute distress. VITAL SIGNS: Temperature is 98, heart rate is 79, respiratory rate is 20, blood pressure 123/76. HEENT: Moist mucous membranes. Crowded airway. Mallampati score is 4. NECK: Supple. No JVD. LUNGS: Have a fair airflow with few rhonchi. HEART: S1, S2. ABDOMEN: Soft, nontender. No organomegaly. EXTREMITIES: There is no edema. NEUROLOGIC: Awake, alert, follows simple commands. MEDICATIONS: She is on Advair 500/50 one puff twice a day, Ambien 5 mg at bedtime p.r.n., Ativan 0.5 mg 3 times a day, Colace 100 mg twice a day, trazodone 50 mg at bedtime, Flexeril 10 mg 3 times a da y, Geodon 40 mg a.m. and at bedtime, potassium 10 mEq daily, Lasix 20 mg daily, MiraLax 30 mL daily p .r.n., milk of magnesia 30 mL daily p.r.n., Neurontin 100 mg 3 times a day, Nicoderm patch daily, Sin gulair 10 mg daily, Synthroid 125 mcg daily, Topamax 50 mg twice a day, Tylenol on a p.r.n. basis, Ve ntolin 2 puffs q. 6 hours p.r.n., Wellbutrin 300 mg daily. LABORATORY DATA: Shows hemoglobin 12.6, hematocrit 45.1, WBC 7.4, platelet is 253. Sodium 142, pota ssium 3.9, chloride 112, bicarbonate 22, BUN 7, creatinine 0.8, glucose 93. Hemoglobin A1c 5.4, phos phorus 3.5, magnesium 2.5, AST 49, ALT 37, alkaline phosphatase is 118, albumin is 3.9. Had echocard iogram done, report is pending. IMPRESSION AND PLAN: Schizophrenia, morbid obesity, sleep apnea syndrome, chronic lung disease, hypo thyroid. Pulmonary point of view, she is doing better. Continue CPAP. Continue inhaled bronchodila tor. Keep head elevated at 45 degrees. Fall precautions. Will recommend a sleep study as an outpat ient. We will follow with you. Lefty Phipps MD cc: [id number] TT: 12/08/2016 21:22:31 Confirmation # [id number] Dictation # [id number] rn
--- NOTE | 2016-12-08 21:25 | PN ---
DATE: 12/08/2016 The patient is in room 513, bed 2. REASON FOR CONSULTATION: Preop evaluation, abnormal stress test, admitted to psychiatric floor. HISTORY OF PRESENT ILLNESS: The patient is a 41-year-old female with a past medical history signific ant for anxiety disorder, arthritis, asthma, COPD, depression, diabetes, fibromyalgia, Graves' diseas e, hypertension, posttraumatic stress disorder, schizophrenia, admitted to psychiatric floor for laurie tment . EKG read as prolonged QT intervals, so consultation had been called. The patient denie s any chest pain, shortness of breath or palpitations. The patient is lying comfortably in bed witho ut any cardiac symptoms at present. PHYSICAL EXAMINATION: VITAL SIGNS: Blood pressure 123/76, respirations 20, pulse 79, temperature 97.9. HEAD: Normocephalic. EYES: Pupils normal. Conjunctivae normal. NOSE AND THROAT: Normal. NECK: JVP low. Carotid equal. THORAX: AP diameter normal. LUNGS: Clear. CARDIOVASCULAR: S1, S2. ABDOMEN: Protuberant. No organomegaly. Bowel sounds normal. EXTREMITIES: No clubbing, no cyanosis. LABORATORY DATA: WBC 7.4, hemoglobin 15.6, hematocrit 45.1, platelet 253. Sodium 142, potassium 3.9 , BUN 7, creatinine 0.8. Calcium, phosphorus and magnesium are normal. AST 41, ALT 39. DIAGNOSES: Abnormal EKG, but the EKG is normal sinus rhythm, corrected QT appears normal; increased body mass index, obesity 46.8 kg/m2; TSH 15.4, which is elevated; morbid obesity. PLAN: An echo has been requested. Will follow the echo function. Stress test can be done lat er when the patient is mentally stable. The patient has been put on Synthroid 125 mcg p.o. daily, ga bapentin 100 mg t.i.d., furosemide 20 daily, potassium 10 daily, Ventolin inhaler, Wellbutrin-XL 300 mg daily, Geodon capsule 40 mg p.o. a.m. and at bedtime, Flexeril 10 mg t.i.d., Desyrel 50 mg at bedt eliana, Ativan 0.5 t.i.d. Will continue present therapy and will follow with you. Lefty Foy MD cc: [id number] TT: 12/08/2016 21:24:53 Confirmation # [id number] Dictation # [id number] dn
[2016-12-09 07:39] VITALS: O2SAT 20
[2016-12-09] MEDS: Fluticasone-Salmeterol 500-50mcg Diskus INH SCH ×2 (09:33→17:34)
[2016-12-09] MEDS: Levothyroxine 125 MCG TAB PO SCH (09:39)
[2016-12-09] MEDS: buPROPion 300 mg/24 Hours XL Tab PO SCH (09:39)
[2016-12-09] MEDS: Potassium Chloride 10 mEq ER Tab PO SCH (11:10)
--- NOTE | 2016-12-09 13:48 | PN ---
DATE: 12/09/2016 The patient is in room 513, bed 2. REASON FOR CONSULTATION: Preop evaluation, abnormal EKG, admitted to psychiatric floor. HISTORY OF PRESENT ILLNESS: The patient is a 41-year-old female with past medical history significan t for anxiety disorder, arthritis, asthma, COPD, depression, diabetes, fibromyalgia, Graves' disease, hypertension, posttraumatic stress disorder, schizophrenia, was admitted to psychiatric floor for tr eatment. EKG read as prolonged QT interval, so consultation has been requested for that. The patien t does not have any cardiac symptoms. PHYSICAL EXAMINATION: VITAL SIGNS: Blood pressure is 134/82, respirations 20, pulse 79, temperature 98.5. HEAD: Normocephalic. EYES: Pupils normal. Conjunctivae normal. NOSE AND THROAT: Normal. NECK: JVP low. Carotid equal. THORAX: AP diameter normal. LUNGS: Clear. CARDIOVASCULAR: S1, S2. ABDOMEN: Protuberant, no organomegaly. EXTREMITIES: No clubbing, no cyanosis. LABORATORY DATA: WBC 7.4, hemoglobin 15.6, hematocrit 45.1, platelet 253. Sodium 142, potassium 3.9 , BUN is 7, creatinine 0.8. AST 49, ALT 37, total protein and albumin normal. TSH 15.40. DIAGNOSES: Abnormal EKG, but EKG with corrected QT appears normal; increased body mass index, obesit y, body mass index of 46.8 kg/m2. TSH is 15.4 which is elevated. Morbid obesity, schizophrenia and other psychiatric problems as mentioned above. PLAN: We will follow the echo and the patient can do stress test as outpatient later on when her men curtis status is better. In the meantime, continue present therapy, including furosemide 20 mg daily an d potassium 10 mEq daily along with psychiatric medications and we advised the patient to lose weight . We will follow with you. Lefty Foy MD cc: [id number] TT: 12/09/2016 13:46:48 Confirmation # [id number] Dictation # [id number] tn
--- NOTE | 2016-12-09 16:01 | PCM.PYCHPN ---
Psychiatric Progress Note - Psychiatric Progress Note Patient seen today, length of contact: 30 minutes Patient Chief Complaint: "Lilia helping me a lot" Problems Identified/Issues Discussed: Suicide/ homicide prevention, past psychiatric h/o, current psychiatric symptoms , medical problems, risk/benefits and alternatives of medications, medications compliance, coping strategies, substance abuse h/o, relapse prevention, importance of follow up with psychiatrist and therapist, discharge plan. Medical Problems: QTC prolongation but was cleared by neurologist Obesity Hypothyroidism Diagnostic Results: 12/08/16 06:00 12/08/16 06:00 Lab Results 12/08/16 10:30: Total Bilirubin 0.6, Direct Bilirubin 0.3, AST 49 H, ALT 37, Alkaline Phosphatase 118, Total Protein 7.0, Albumin 3.9, Globulin 3.2, Albumin/ Globulin Ratio 1.2, Triglycerides 109, Cholesterol 159, LDL Cholesterol Direct 73, HDL Cholesterol 64 H 12/08/16 06:00: Hemoglobin A1c 5.4 12/08/16 06:00: Sodium 142, Potassium 3.9, Chloride 112 H, Carbon Dioxide 22, Anion Gap 12, BUN 7, Creatinine 0.8, Est GFR ( Amer) > 60, Est GFR (Non- Af Amer) > 60, Random Glucose 93, Calcium 9.1, Phosphorus 3.4, Magnesium 2.5 H, Total Bilirubin 0.7, AST 41 H, ALT 39, Alkaline Phosphatase 130, Total Protein 6.3, Albumin 3.5, Globulin 2.8, Albumin/Globulin Ratio 1.3 12/08/16 06:00: WBC 7.4, RBC 4.78, Hgb 15.6, Hct 45.1, MCV 94.4, MCH 32.6, MCHC 34.6, RDW 14.6 H, Plt Count 253, MPV 9.9, Gran % 65.3, Lymph % (Auto) 25.2, [place] % (Auto) 7.8 H, Eos % (Auto) 1.3 L, Baso % (Auto) 0.4, Gran # 4.83, Lymph # 1.9, [place] # 0.6, Eos # 0.1, Baso # 0.03 12/07/16 08:00: RPR Nonreactive 12/07/16 08:00: Free T4 0.95, TSH 3rd Generation 15.40 H 12/07/16 08:00: Fasting Glucose 98, Triglycerides 119, Cholesterol 170, LDL Cholesterol Direct 71, HDL Cholesterol 68 H Vital Signs Temp Pulse Resp BP Pulse Ox 12/08/16 09:46 122/75 12/08/16 07:42 97.9 F 95 H 20 122/75 12/08/16 00:50 88 12/07/16 16:10 107 H 136/86 12/07/16 08:41 132/86 12/07/16 07:36 98.8 F 95 H 20 132/86 12/07/16 06:40 16 12/07/16 04:29 98.8 F 101 H 18 112/76 99 Temp Pulse Resp BP Pulse Ox 98.5 F 79 20 134/82 20 L 12/09/16 07:37 12/09/16 07:37 12/09/16 07:37 12/09/16 09:40 12/09/16 07:37 DSM 5 Symptoms Update: shortly patient is 41 years old female not known previous history of psychiatric history, not known previous psychiatric admissions, patient has some new group cognitive disorder, possible learning disabilities, patient currently under care of [facility] outpatient clinic, came to the emergency at [facility] saying that she "my head is not clear" patient presented to be disorganized, flat affect, in catatonic stage, patient was transferred to [facility] because [facility] had no beds available. Patient needs to have further evaluation, stabilization, medications adjustment. pt was seen at the tx team room, pt presented in catatonic stage, flat affect, had difficulties to express herself but some improvement, affect was more reactive. patient presented to be disorganized, psychotic, had feeling that somebody stealing her thoughts, but at the same time patient is more expressive. Pt said that Geodon "helping me a lot" Patient tolerates medication well, no side effects observed or reported, aims 0 , no EPS. As per nursing report patient is compliant with her medications no behavioral incident. Impression: Schizoaffective disorder Medication Change: Yes (Geodon increased, Ativan increased) Medical Record Reviewed: Yes Consults ordered or reviewed: medical consult appreciated cardiology consult appreciated Pulmonology consult appreciated Mental Status Examination - Cognitive Function Orientation: Person Memory: Impaired Attention: Poor Concentration: Poor Association: Loose - Mood Mood: Depressed, Anxious - Affect Affect: Flat - Speech Speech: Appropriate (slow low-volume) - Formal Thought Process Formal Thought Process: Hallucinations, Delusions, Paranoia, Loosening of associations - Suicidal Ideation Suicidal Ideation: No - Homicidal Ideation Homicidal Ideation: No Goal/Treatment Plan - Goal/Treatment Plan Need for Continued Stay: Remain at risks for inpatient hospitalization, Severe depression anxiety, Discharge may exacerbated symptoms, Severe functional impairment Progress Toward Problem(s) and Goals/Treatment Plan: milieu, structure, supportive therapy Jackiey was Geodon 60 mgmg twice a day for psychosis and mood stabilization Wellbutrin will be continued 300 mg daily Neurontin be continued 100 mg 3 times a day Ambien 5 mg as needed for insomnia Ativan will be increased to 1 mg twice a day for catatonia Topamax will be continued 50milligrams twice a day Colace will be continued 100 mg twice a day Cyclobenzaprine [Cyclobenzaprine HCl] 10 mg PO TID will be continued Furosemide [Lasix] 20 mg PO DAILY will be continued K-Dur 20 mEq ER Tab 10 meq PO DAILY will be continued Levothyroxine [Synthroid] 112 mcg PO will be continued Montelukast [Singulair] 10 mg PO DAILY will be continued traZODone [Desyrel] 50 mg PO HS scheduled medical team evaluation appreciated pulmonology eval ppreciated ?neurology eval, pt has h/o migraine [facility] cardiology consult QTC prolongation, was cleared for consultation appreciated SW evaluation will monitor closely Estimated Date of D/C: 12/14/16 (we'll monitor closely)
--- NOTE | 2016-12-09 17:21 | CARD ---
APPROVED REPORT EXAM: Two-dimensional and M-mode echocardiogram with Doppler and color Doppler. INDICATION Abnormal EKG/Arrhythmia 2D DIMENSIONS Left Atrium (2D)3.7 (1.6-4.0cm)IVSd1.1 (0.7-1.1cm) LVDd3.6 (3.9-5.9cm)PWd1.1 (0.7-1.1cm) LVDs2.7 (2.5-4.0cm)FS (%) 25.7 % LVEF (%)51.4 (>50%) M-Mode DIMENSIONS Aortic Root3.20 (2.2-3.7cm)Aortic Cusp Exc.1.70 (1.5-2.0cm) Aortic Valve AoV Peak Grfcilzi608.0cm/Bernardo Peak GR.10mmHg Mitral Valve E/A ratio0.0 TDI E/Lateral E'0.0E/Medial E'0.0 Tricuspid Valve TR Peak [id number] [id number] Peak Gr.18mmHg [id number] LEFT VENTRICLE The left ventricle is normal size. There is normal left ventricular wall thickness. The left ventricular function is normal.EF-55% There is normal LV segmental wall motion. Transmitral Doppler flow pattern is Grade III-reversible restrictive diastolic dysfunction. No left ventricle thrombus noted on this study. There is no ventricular septal defect visualized. There is no left ventricular aneurysm. There is no mass noted in the left ventricle. RIGHT VENTRICLE The right ventricle is normal size. There is normal right ventricular wall thickness. The right ventricular systolic function is normal. ATRIA The left atrium size is normal. The right atrium size is normal. The interatrial septum is intact with no evidence for an atrial septal defect. AORTIC VALVE The aortic valve is thickened but opens well. There is trace aortic regurgitation. There is no aortic valvular stenosis. There is no aortic valvular vegetation. MITRAL VALVE The mitral valve is thickened but opens well. Mitral regurgitation is mild. There is no mitral valve stenosis. There is no evidence of mitral valve prolapse. TRICUSPID VALVE The tricuspid valve leaflets are thickened , but open well. There is mild tricuspid regurgitation.RVSP-28 mm of HG There is no tricuspid valve stenosis. There is no tricuspid valve prolapse or vegetation. PULMONIC VALVE The pulmonic valve is not well visualized. GREAT VESSELS The aortic root is normal in size. The pulmonary artery is normal. The IVC is normal in size and collapses >50% with inspiration. PERICARDIAL EFFUSION There is no pleural effusion. There is no pericardial effusion. <Conclusion> The left ventricle is normal size. There is normal left ventricular wall thickness. The left ventricular function is normal.EF-55% There is trace aortic regurgitation. Mitral regurgitation is mild. There is mild tricuspid regurgitation.RVSP-28 mm of HG
--- NOTE | 2016-12-09 20:21 | PN ---
DATE: 12/09/2016 REFERRING PHYSICIAN: Dr. Tonie Tavares. SUBJECTIVE: She is out of bed to chair, night was unremarkable, could not use CPAP, feels okay thoug h, gets short of breath with exertion. No nausea, no vomiting, no diarrhea, no leg pain or leg swell ing. OBJECTIVE: GENERAL: No acute distress. VITAL SIGNS: Temp is 98, heart rate is 79, respiratory rate is 20, blood pressure 134/82. HEENT: Moist mucous membrane. Crowded airway. Mallampati score is 4. NECK: Supple. No JVD. LUNGS: Has a fair airflow with few rhonchi. HEART: S1, S2. ABDOMEN: Soft, nontender. No organomegaly. EXTREMITIES: There is no edema. NEUROLOGIC: Awake, alert, follows simple command. MEDICATIONS: She is on Advair 500/50 one puff twice a day, Ambien 5 mg at bedtime p.r.n., Ativan 1 m g 3 times a day, Colace 100 mg ____, trazodone 50 mg at bedtime, Flexeril 10 mg 3 times a day, Geodon 60 mg twice a day, potassium 10 mEq daily, Lasix 20 mg daily, Maalox 30 mL p.o. daily, milk of magn esia p.r.n. basis, gabapentin 100 mg 3 times a day, Nicoderm patch daily, Singulair 10 mg daily, Synt hroid 125 mcg daily, Topamax 50 mg twice a day, Tylenol p.r.n., Ventolin HFA q. 4 hours p.r.n., Well butrin-XL 300 mg daily. LABORATORY DATA: Reviewed, noted no new lab today. IMPRESSION AND PLAN: Schizophrenia, morbid obesity, sleep apnea syndrome, chronic lung disease, hypo thyroid. Pulmonary point of view, doing okay. Encouraged CPAP use. Keep head elevated at 45 degree s, p.o. and inhaled bronchodilator. Receiving NicoDerm patch. Careful with sedation . Also on diure tics, being followed by cardiology. Fall precautions. We recommend sleep study as outpatient upon d ischarge. Thank you and will follow with you. Lefty Phipps MD cc: [id number] TT: 12/09/2016 20:20:28 Confirmation # [id number] Dictation # [id number] jn
[2016-12-10] MEDS: Fluticasone-Salmeterol 500-50mcg Diskus INH SCH ×2 (08:17→19:03)
[2016-12-10] MEDS: buPROPion 300 mg/24 Hours XL Tab PO SCH (08:17)
[2016-12-10] MEDS: Levothyroxine 125 MCG TAB PO SCH (08:17)
[2016-12-10] MEDS: Potassium Chloride 10 mEq ER Tab PO SCH (08:18)
--- NOTE | 2016-12-10 08:54 | PCM.PYCHPN ---
Psychiatric Progress Note - Psychiatric Progress Note Patient seen today, length of contact: 25 minutes Problems Identified/Issues Discussed: I reviewed assessment and recent notes. I met with patient at bedside. Patient is fairly calm and superficially cooperative. Denies new concerns. She reports that she is doing better and she is oriented to location month and year. When I try to discuss hallucinations patient becomes unresponsive despite my support. She will however respond to my other questions. Her affect is flat, blunt and preoccupied. Patient does not appear to be in any physical distress and she denies any new discomfort or pain. She is tolerating her medications and reports that she sleeping better on the unit. There were no behavioral issues overnight Diagnostic Results: Schizoaffective Disorder Medication Change: No (Geodon increased, Ativan increased) Medical Record Reviewed: Yes Mental Status Examination - Cognitive Function Orientation: Person Memory: Impaired Attention: Poor Concentration: Poor Association: Loose - Mood Mood: Depressed (better), Anxious - Affect Affect: Flat - Speech Speech: Appropriate (slow low-volume) - Formal Thought Process Formal Thought Process: Hallucinations (will not discuss today), Delusions, Paranoia, Loosening of associations - Suicidal Ideation Suicidal Ideation: No - Homicidal Ideation Homicidal Ideation: No Goal/Treatment Plan - Goal/Treatment Plan Need for Continued Stay: Remain at risks for inpatient hospitalization, Severe depression anxiety, Discharge may exacerbated symptoms, Severe functional impairment Progress Toward Problem(s) and Goals/Treatment Plan: * c/w current tx and plan * No new weekend labs * Vitals reviewed and noted below: Selected Entries 12/09/16 12/09/16 12/09/16 07:37 09:40 19:52 Temperature 98.5 F Pulse Rate 79 77 Respiratory 20 18 Rate Blood Pressure 134/82 134/82 123/84 O2 Sat by Pulse 20 L Oximetry Estimated Date of D/C: 12/14/16 (we'll monitor closely)
--- NOTE | 2016-12-10 19:11 | PN ---
DATE: 12/10/2016 REFERRING PHYSICIAN: Dr. Tavares. SUBJECTIVE: She is lying in the bed, sleepy, arousable, apparently BiPAP was never placed on last ni ght. Denying any cough or sputum production, no nausea, vomiting, diarrhea. No leg pain or leg swel ling. OBJECTIVE: GENERAL: No acute distress. VITAL SIGNS: Temperature is 98, heart rate is 83, respiratory rate is 20, blood pressure 116/83. HEENT: Moist mucous membranes. Crowded airway. NECK: Supple, no JVD. LUNGS: Have a fair airflow with few rhonchi. HEART: S1, S2. ABDOMEN: Soft, nontender. No organomegaly. EXTREMITIES: There is no edema. NEUROLOGIC: Awake, alert, follows simple command. MEDICATIONS: She is on Advair 500/50 one puff twice a day, Ambien 5 mg at bedtime p.r.n., Ativan 1 m g 3 times a day, Colace 100 mg twice a day, trazodone 50 mg at bedtime, Flexeril 10 mg 3 times a day, Geodon 60 mg a.m. and at bedtime, potassium 10 mEq daily, Lasix 20 mg daily, MiraLax p.r.n. basis, m ilk of magnesia p.r.n. basis, Neurontin 100 mg 3 times a day, Nicoderm patch daily, Singulair 10 mg d aily, Synthroid 125 mcg daily, Topamax 50 mg twice a day, Tylenol p.r.n. basis, Ventolin HFA 2 puffs q. 4 hours, Wellbutrin-XL 300 mg daily. LABORATORY DATA: Reviewed and shows no new laboratory data is available since yesterday. IMPRESSION AND PLAN: Schizophrenia, morbid obesity, sleep apnea syndrome, chronic lung disease, hypo thyroid. I spoke to nursing staff and requested to bring her CPAP back and it while sleeping during the daytime or night time. Fall precautions, p.o., and inhaled bronchodilator. Continue therapy. Thank you and will follow with you. Lefty Phipps MD cc: [id number] TT: 12/10/2016 19:11:10 Confirmation # [id number] Dictation # [id number] jn
[2016-12-11] MEDS: Fluticasone-Salmeterol 500-50mcg Diskus INH SCH ×2 (05:52→18:19)
[2016-12-11] MEDS: buPROPion 300 mg/24 Hours XL Tab PO SCH (08:04)
[2016-12-11] MEDS: Potassium Chloride 10 mEq ER Tab PO SCH (08:05)
--- NOTE | 2016-12-11 08:48 | PCM.PYCHPN ---
Psychiatric Progress Note - Psychiatric Progress Note Patient seen today, length of contact: 25 minutes Patient Chief Complaint: I definitely do feel better since admission Problems Identified/Issues Discussed: I reviewed recent notes and met with patient in the hallway. Patient is fairly calm and superficially cooperative. Denies new concerns. She reports that she is doing better and she is oriented to location month and year. Today she is more forthcoming regarding her auditory hallucinations. She reports that she continues to hear on intelligible voices talking. She denies command auditory hallucinations. Reports that the quantity and intensity of the hallucinations are improving on the unit with medications. She is still oddly related and her affect is flat, guarded and preoccupied. Patient does not appear to be in any physical distress and she denies any new discomfort or pain. She is tolerating her medications and reports that she sleeping better on the unit. There were no behavioral issues overnight Diagnostic Results: Schizoaffective Disorder Medication Change: Yes (Geodon increased ) Medical Record Reviewed: Yes (notes, reports, labs, vitals) Mental Status Examination - Cognitive Function Orientation: Person Memory: Impaired Attention: Poor Concentration: Poor Association: Loose - Mood Mood: Depressed (better), Anxious - Affect Affect: Flat - Speech Speech: Appropriate (slow low-volume) - Formal Thought Process Formal Thought Process: Hallucinations (endorses continues AH, unintelligible voices, improving since admission), Delusions, Paranoia, Loosening of associations - Suicidal Ideation Suicidal Ideation: No - Homicidal Ideation Homicidal Ideation: No Goal/Treatment Plan - Goal/Treatment Plan Need for Continued Stay: Remain at risks for inpatient hospitalization, Severe depression anxiety, Discharge may exacerbated symptoms, Severe functional impairment Progress Toward Problem(s) and Goals/Treatment Plan: * c/w current tx and plan * Appreciate f/u by Dr. Phipps on 12/10/16~c/w treatment * Increased Geodon to 60 mg AM and 80 mg PM on 12/11/16 to target continued auditory hallucinations * No new weekend labs * Vitals reviewed and noted below: Selected Entries 12/10/16 12/10/16 12/10/16 07:00 08:17 16:00 Temperature 97.9 F Pulse Rate 83 77 Respiratory 20 Rate Blood Pressure 127/78 127/78 116/83 Estimated Date of D/C: 12/14/16 (we'll monitor closely)
[2016-12-11] MEDS: Levothyroxine 125 MCG TAB PO SCH (09:18)
--- NOTE | 2016-12-11 19:31 | PN ---
DATE: 12/11/2016 PULMONARY PROGRESS NOTE REFERRING PHYSICIAN: Dr. Tonie Tavares. SUBJECTIVE: She is in the hallway in the wheelchair, refused to use CPAP last night. No headache, n o rhinitis, no nausea, no vomiting, no diarrhea. Get short of breath with exertion. OBJECTIVE: GENERAL: No acute distress. VITAL SIGNS: Temp is 98, heart rate is 77, respiratory rate is 20, blood pressure 115/74. HEENT: Moist mucous membrane. Crowded airway. Mallampati score is 4. NECK: Supple. No JVD. LUNGS: Fair airflow with few rhonchi. HEART: S1 and S2. ABDOMEN: Soft, nontender. No organomegaly. EXTREMITIES: There is no edema. NEUROLOGIC: Awake, alert, follows simple command. MEDICATIONS: She is on Advair 500/50 one puff twice a day, Ambien 5 mg at bedtime p.r.n., Ativan 1 m g 3 times a day, Colace 100 mg twice a day, trazodone 50 mg at bedtime, Flexeril 10 mg 3 times a day, Geodon 80 mg daily, also Geodon 60 mg daily, potassium 4 at 10 mEq daily, Lasix 20 mg daily, MiraLax p.r.n. basis, Milk of Magnesia 30 mL daily, Neurontin 100 mg 3 times a day, Nicoderm patch daily, Si ngulair 10 mg daily, Synthroid 125 mcg daily, Topamax 50 mg as needed, Tylenol p.r.n. basis, Ventolin HFA 2 puffs q. 4 hours p.r.n., Wellbutrin XL 300 mg daily. LABORATORY DATA: Shows no new lab is available. IMPRESSION AND PLAN: Schizophrenia, morbid obesity, sleep apnea syndrome, chronic lung disease, hypo thyroid. I spoke to nursing staff, encourage the patient to use CPAP. CPAP is in ; if the lisandro ent is willing to do this, we will place it on tonight. Sleep apnea precautions. Careful with sedat ion. Gastric prophylaxis. Fall precaution. Continue bronchodilator. Thank you and will follow annalisa heller. Lefty Phipps MD cc: [id number] TT: 12/11/2016 19:30:21 Confirmation # [id number] Dictation # [id number] mn
[2016-12-12] MEDS: Fluticasone-Salmeterol 500-50mcg Diskus INH SCH ×2 (06:31→17:18)
[2016-12-12] MEDS: Potassium Chloride 10 mEq ER Tab PO SCH (08:16)
[2016-12-12] MEDS: Levothyroxine 125 MCG TAB PO SCH (08:17)
[2016-12-12] MEDS: buPROPion 300 mg/24 Hours XL Tab PO SCH (08:18)
--- NOTE | 2016-12-12 09:01 | PCM.PYCHPN ---
Psychiatric Progress Note - Psychiatric Progress Note Patient seen today, length of contact: 25 minutes Patient Chief Complaint: I definitely do feel better since admission Problems Identified/Issues Discussed: I reviewed recent notes and met with patient at bedside. Patient is fairly calm and superficially cooperative. Denies new concerns. She reports that she is doing better and she is oriented to location month and year. In general she is more communicative and spontaneous with her speech. Continues to be more forthcoming regarding her auditory hallucinations. She reports that she continues to hear on unintelligible voices talking. She denies command auditory hallucinations. Reports that the quantity and intensity of the hallucinations are improving on the unit with medications. She is still a little oddly related and her affect is flat, guarded and preoccupied. Patient does not appear to be in any physical distress and she denies any new discomfort or pain. She is tolerating her medications and reports that she slept better with use of the CPAP on the unit last night. Staff notes indicate that patient has been going to groups and appears a little brighter on the unit. There were no behavioral issues over the holiday weekend. Diagnostic Results: Schizoaffective Disorder Medication Change: Yes (Geodon increased on 12/11/16) Medical Record Reviewed: Yes (notes, reports, labs, vitals) Mental Status Examination - Cognitive Function Orientation: Person, Place, Situation Memory: Impaired Attention: Poor Concentration: Poor Association: Loose - Mood Mood: Depressed (better), Anxious - Affect Affect: Flat - Speech Speech: Appropriate (slow low-volume) - Formal Thought Process Formal Thought Process: Hallucinations (endorses continues AH, unintelligible voices, improving since admission), Delusions, Paranoia, Loosening of associations - Suicidal Ideation Suicidal Ideation: No - Homicidal Ideation Homicidal Ideation: No Goal/Treatment Plan - Goal/Treatment Plan Need for Continued Stay: Remain at risks for inpatient hospitalization, Severe depression anxiety, Discharge may exacerbated symptoms, Severe functional impairment Progress Toward Problem(s) and Goals/Treatment Plan: * c/w current tx and plan * Appreciate f/u by Dr. Phipps on 12/10/16 and 12/11/16~c/w treatment, encourage CPAP and c/w bronchodilator * Increased Geodon to 60 mg AM and 80 mg PM on 12/11/16 to target continued auditory hallucinations * No new weekend labs * Vitals reviewed and noted below: Selected Entries 12/12/16 12/12/16 07:32 08:17 Temperature 98.2 F Pulse Rate 76 Respiratory 17 Rate Blood Pressure 116/69 116/69 Estimated Date of D/C: 12/14/16 (we'll monitor closely)
[2016-12-12] MEDS: Fluticasone Nasal 50 mcg/Spray NS SCH (17:20)
--- NOTE | 2016-12-12 23:05 | PN ---
DATE: 12/12/2016 REFERRING PHYSICIAN: Dr. Tonie Tavares. SUBJECTIVE: She is out of bed to a wheelchair. Night was unremarkable. Tolerated CPAP well last ni ght. No headaches, no rhinitis, no nausea, no vomiting, diarrhea, no leg pain, leg swelling. OBJECTIVE: GENERAL: No acute distress. VITAL SIGNS: Temp is 98, heart rate is 86, respiratory rate is 18, blood pressure 132/76, pulse ox n ot available. HEENT: Moist mucous membranes. Crowded airway. Mallampati score is 4. NECK: Supple. No JVD. LUNGS: Have a fair airflow with rhonchi. HEART: S1 and S2. ABDOMEN: Soft, nontender. No organomegaly. EXTREMITIES: There is no edema. NEUROLOGIC: Awake, alert, follows simple command. MEDICATIONS: She is on Advair 500/50 one puff twice a day, Ambien 5 mg at bedtime, Ativan 1 mg 3 august es a day, Colace 100 mg twice a day, trazodone 50 mg at bedtime, Flexeril 10 mg 3 times a day, Flonas e 1 spray each nostril twice a day, Geodon 80 mg and also Geodon 60 mg daily, potassium 10 mEq daily, Lasix 20 mg daily, milk of magnesia 30 mL daily, Neurontin 100 mg 3 times a day, Nicoderm patch dayna y, Singulair 10 mg daily, Synthroid 125 mcg daily, Topamax 50 mg twice daily, Tylenol p.r.n. basis, U ltram 50 mg daily p.r.n., albuterol HFA 2 puffs q. 6 hours p.r.n., Wellbutrin 300 mg daily. LABORATORY DATA: Reviewed. No new lab is available since yesterday. IMPRESSION AND PLAN: Schizophrenia, morbid obesity, sleep apnea syndrome, chronic lung disease, hypo thyroid. I spoke with the staff. The patient did tolerate CPAP last night. Mild rhinitis. Request ed to add Flonase 1 spray each nostril twice a day. Continue to encourage CPAP use. Careful with se dation. Fall precautions. Sleep apnea precautions. Thank you, and will follow with you. Lefty Phipps MD cc: [id number] TT: 12/12/2016 23:04:36 Confirmation # [id number] Dictation # [id number] dn
--- NOTE | 2016-12-13 08:26 | PN ---
DATE: 12/10/2016 REASON FOR CONSULTATION: Preoperative evaluation, EKG, admitted to psychiatric floor. BRIEF CLINICAL HISTORY: The patient is a 41-year-old female with past medical history significant fo r anxiety disorder, arthritis, asthma, COPD, depression, diabetes and fibromyalgia, Graves disease, h ypertension, posttraumatic stress disorder, schizophrenia, was admitted to psych floor for treatment. EKG with prolonged QT interval. Cardiac consult was called. Denies any chest pain, shortness of b reath, any palpitation. PHYSICAL EXAMINATION: VITAL SIGNS: Temperature afebrile, heart rate 83, blood pressure 127/78. HEENT: PERRLA. Extraocular muscles intact. NECK: Supple. No carotid bruits. No thyromegaly. CHEST: Clear to auscultation. HEART: S1, S2 regular. ABDOMEN: Soft. EXTREMITIES: Clubbing, cyanosis negative. LABORATORY DATA: WBC 7.4, hemoglobin 15.6, hematocrit 45.1, platelet count 253. Chemistry shows sod ium 140, potassium 3.____ , chloride 112, ____ anion gap ____, BUN 7, creatinine 0.8. Total triglyc eride 109, VLDL ___, LDL 73, HDL 64. TSH is ____. IMPRESSION: Hypothyroidism, abnormal EKG, but corrected EKG was within normal limits, increased body mass, obesity ____ for elevated morbid obesity, schizophrenia, psychiatric disorder. RECOMMENDATION: Echo was done yesterday that showed ejection fraction 55%, trace aortic regurgitatio n, mild mitral regurgitation, mild tricuspid regurgitation, ____ pressure 28. No cardiac problem. T he patient was at home levothyroxine 112, so is was increased by Dr. Vaca to 125, continue current treatment. No further cardiac workup is planned. The patient is okay to go for treatment if needed. I will sign off. I will be glad to follow p.r.n. Thank you, Dr. Tavares, for providing the opportunity in taking care of this patient. Lefty Heredia MD cc: [id number] TT: 12/10/2016 17:01:48 Confirmation # [id number] Dictation # [id number] jn
[2016-12-13] MEDS: Potassium Chloride 10 mEq ER Tab PO SCH (09:00)
[2016-12-13] MEDS: Fluticasone-Salmeterol 500-50mcg Diskus INH SCH ×2 (09:07→17:11)
[2016-12-13] MEDS: buPROPion 300 mg/24 Hours XL Tab PO SCH (09:08)
[2016-12-13] MEDS: Fluticasone Nasal 50 mcg/Spray NS SCH ×2 (10:09→16:17)
[2016-12-13] MEDS: Levothyroxine 125 MCG TAB PO SCH (10:11)
--- NOTE | 2016-12-13 16:03 | PCM.PYCHPN ---
Psychiatric Progress Note - Psychiatric Progress Note Patient seen today, length of contact: 30 minutes Patient Chief Complaint: "I feel little better" Problems Identified/Issues Discussed: Suicide/ homicide prevention, past psychiatric h/o, current psychiatric symptoms , medical problems, risk/benefits and alternatives of medications, medications compliance, coping strategies, substance abuse h/o, relapse prevention, importance of follow up with psychiatrist and therapist, discharge plan. Medical Problems: QTC prolongation but was cleared by neurologist Obesity Hypothyroidism Diagnostic Results: 12/08/16 06:00 12/08/16 06:00 Lab Results 12/08/16 10:30: Total Bilirubin 0.6, Direct Bilirubin 0.3, AST 49 H, ALT 37, Alkaline Phosphatase 118, Total Protein 7.0, Albumin 3.9, Globulin 3.2, Albumin/ Globulin Ratio 1.2, Triglycerides 109, Cholesterol 159, LDL Cholesterol Direct 73, HDL Cholesterol 64 H 12/08/16 06:00: Hemoglobin A1c 5.4 12/08/16 06:00: Sodium 142, Potassium 3.9, Chloride 112 H, Carbon Dioxide 22, Anion Gap 12, BUN 7, Creatinine 0.8, Est GFR ( Amer) > 60, Est GFR (Non- Af Amer) > 60, Random Glucose 93, Calcium 9.1, Phosphorus 3.4, Magnesium 2.5 H, Total Bilirubin 0.7, AST 41 H, ALT 39, Alkaline Phosphatase 130, Total Protein 6.3, Albumin 3.5, Globulin 2.8, Albumin/Globulin Ratio 1.3 12/08/16 06:00: WBC 7.4, RBC 4.78, Hgb 15.6, Hct 45.1, MCV 94.4, MCH 32.6, MCHC 34.6, RDW 14.6 H, Plt Count 253, MPV 9.9, Gran % 65.3, Lymph % (Auto) 25.2, Arroyo % (Auto) 7.8 H, Eos % (Auto) 1.3 L, Baso % (Auto) 0.4, Gran # 4.83, Lymph # 1.9, Arroyo # 0.6, Eos # 0.1, Baso # 0.03 12/07/16 08:00: RPR Nonreactive 12/07/16 08:00: Free T4 0.95, TSH 3rd Generation 15.40 H 12/07/16 08:00: Fasting Glucose 98, Triglycerides 119, Cholesterol 170, LDL Cholesterol Direct 71, HDL Cholesterol 68 H Vital Signs Temp Pulse Resp BP Pulse Ox 12/08/16 09:46 122/75 12/08/16 07:42 97.9 F 95 H 20 122/75 12/08/16 00:50 88 12/07/16 16:10 107 H 136/86 12/07/16 08:41 132/86 12/07/16 07:36 98.8 F 95 H 20 132/86 12/07/16 06:40 16 12/07/16 04:29 98.8 F 101 H 18 112/76 99 Temp Pulse Resp BP Pulse Ox 98.5 F 79 20 134/82 20 L 12/09/16 07:37 12/09/16 07:37 12/09/16 07:37 12/09/16 09:40 12/09/16 07:37 Temp Pulse Resp BP Pulse Ox 98.0 F 83 16 131/69 20 L 12/13/16 08:11 12/13/16 08:11 12/13/16 08:11 12/13/16 09:08 12/09/16 07:37 DSM 5 Symptoms Update: shortly patient is 41 years old female not known previous history of psychiatric history, not known previous psychiatric admissions, patient has some new group cognitive disorder, possible learning disabilities, patient currently under care of [facility] outpatient clinic, came to the emergency at [facility] saying that she "my head is not clear" patient presented to be disorganized, flat affect, in catatonic stage, patient was transferred to [facility] because [facility] had no beds available. Patient needs to have further evaluation, stabilization, medications adjustment. pt was seen in her room, there is some positive changes with patient's presentation, patient is more responsive, more verbal, was faster. Patient said that her psychotic symptoms are better, last time or until hallucinations was noted the before yesterday, patient is willing to increase the Geodon. Patient tolerates medication well, no side effects observed or reported, aims 0 , no EPS. As per nursing report patient is compliant with her medications no behavioral incident. Impression: Schizoaffective disorder Medication Change: Yes (Geodon increased on 12/13/16) Medical Record Reviewed: Yes (notes, reports, labs, vitals) Consults ordered or reviewed: medical consult appreciated cardiology consult appreciated Pulmonology consult appreciated Mental Status Examination - Cognitive Function Orientation: Person, Place, Situation Memory: Impaired Attention: Poor (some improvement) Concentration: Poor (ssome improvement) Association: Loose Fund of Knowledge: WNL (some improvement) - Mood Mood: Depressed (better), Anxious - Affect Affect: Flat - Speech Speech: Appropriate (slow low-volume) - Formal Thought Process Formal Thought Process: Hallucinations (endorses continues AH, unintelligible voices, improving since admission), Delusions, Paranoia, Loosening of associations - Suicidal Ideation Suicidal Ideation: No - Homicidal Ideation Homicidal Ideation: No Goal/Treatment Plan - Goal/Treatment Plan Need for Continued Stay: Remain at risks for inpatient hospitalization, Severe depression anxiety, Discharge may exacerbated symptoms, Severe functional impairment Progress Toward Problem(s) and Goals/Treatment Plan: milieu, structure, supportive therapy Angel Luis was Geodon 80 mgmg twice a day for psychosis and mood stabilization Wellbutrin will be continued 300 mg daily Neurontin be continued 100 mg 3 times a day Ambien 5 mg as needed for insomnia Ativan will be increased to 1 mg twice a day for catatonia Topamax will be continued 50milligrams twice a day Colace will be continued 100 mg twice a day Cyclobenzaprine [Cyclobenzaprine HCl] 10 mg PO TID will be continued Furosemide [Lasix] 20 mg PO DAILY will be continued K-Dur 20 mEq ER Tab 10 meq PO DAILY will be continued Levothyroxine [Synthroid] 112 mcg PO will be continued Montelukast [Singulair] 10 mg PO DAILY will be continued traZODone [Desyrel] 50 mg PO HS scheduled medical team evaluation appreciated pulmonology eval ppreciated ?neurology eval, pt has h/o migraine [facility] cardiology consult QTC prolongation, was cleared for consultation appreciated SW evaluation will monitor closely Estimated Date of D/C: 12/16/16 (we'll monitor closely)
--- NOTE | 2016-12-14 04:19 | PN ---
DATE: 12/13/2016 REFERRING PHYSICIAN: Dr. Tonie Tavares. SUBJECTIVE: The patient is sitting in a chair, having dinner. Night was unremarkable. Tolerated CP AP well. He rhinitis is better on Flonase. No chest pain, no nausea, no vomiting, no diarrhea. No leg pain or leg swelling. OBJECTIVE: GENERAL: No acute distress. VITAL SIGNS: Temperature is 98, heart rate 83, respiratory rate is 16, blood pressure 131/69. HEENT: Moist mucous membranes. Crowded airway. NECK: Supple. No JVD. LUNGS: Have fair airflow with few rhonchi. HEART: S1 and S2. ABDOMEN: Soft, nontender. No organomegaly. EXTREMITIES: No edema. NEUROLOGIC: Awake, alert, follows simple commands. MEDICATIONS: She is on Advair 500/50 one puff twice a day, Ambien 5 mg at bedtime p.r.n., Ativan 1 m g 3 times a day, Colace 100 mg twice a day, trazodone 50 mg at bedtime, Flexeril 10 mg 3 times a day, Flonase 1 spray each nostril twice a day, Geodon 80 mg daily, potassium 10 mEq daily, Lasix 20 mg d aily, MiraLax p.r.n. basis, Milk of Magnesia p.r.n. basis, Neurontin 100 mg 3 times a day, Nicoderm p atch daily, Singulair 10 mg at bedtime, Synthroid 125 mcg , Topamax 50 mg twice a day, Tylenol p.r.n. basis, Ultram 50 mg daily p.r.n., Ventolin HFA 2 puffs q. 6 hours p.r.n., Wellbutrin XL 300 m g daily. IMPRESSION AND PLAN: Schizophrenia, morbid obesity, sleep apnea syndrome, chronic lung disease, hypothyroid. Pulmonary po int of view, doing okay. Encourage CPAP use. Keep head at 45-degree. Careful with sedation. P.o. and inhaled bronchodilator. Fall precautions. We recommend sleep study and PFT as outpatient upon d ischarge. We will follow. Lefty hPipps MD cc: [id number] TT: 12/14/2016 04:19:32 Confirmation # [id number] Dictation # [id number] dn
[2016-12-14] MEDS: Levothyroxine 125 MCG TAB PO SCH (07:30)
[2016-12-14] MEDS: Fluticasone-Salmeterol 500-50mcg Diskus INH SCH ×2 (08:54→17:25)
[2016-12-14] MEDS: Fluticasone Nasal 50 mcg/Spray NS SCH ×2 (08:54→17:26)
[2016-12-14] MEDS: Potassium Chloride 10 mEq ER Tab PO SCH (08:58)
[2016-12-14] MEDS: buPROPion 300 mg/24 Hours XL Tab PO SCH (08:58)
--- NOTE | 2016-12-14 15:31 | PCM.PYCHPN ---
Psychiatric Progress Note - Psychiatric Progress Note Patient seen today, length of contact: 30 minutes Patient Chief Complaint: "I feel that I am doing better..." Problems Identified/Issues Discussed: Suicide/ homicide prevention, past psychiatric h/o, current psychiatric symptoms , medical problems, risk/benefits and alternatives of medications, medications compliance, coping strategies, substance abuse h/o, relapse prevention, importance of follow up with psychiatrist and therapist, discharge plan. Medical Problems: QTC prolongation but was cleared by neurologist Obesity Hypothyroidism Diagnostic Results: 12/08/16 06:00 12/08/16 06:00 Lab Results 12/08/16 10:30: Total Bilirubin 0.6, Direct Bilirubin 0.3, AST 49 H, ALT 37, Alkaline Phosphatase 118, Total Protein 7.0, Albumin 3.9, Globulin 3.2, Albumin/ Globulin Ratio 1.2, Triglycerides 109, Cholesterol 159, LDL Cholesterol Direct 73, HDL Cholesterol 64 H 12/08/16 06:00: Hemoglobin A1c 5.4 12/08/16 06:00: Sodium 142, Potassium 3.9, Chloride 112 H, Carbon Dioxide 22, Anion Gap 12, BUN 7, Creatinine 0.8, Est GFR ( Amer) > 60, Est GFR (Non- Af Amer) > 60, Random Glucose 93, Calcium 9.1, Phosphorus 3.4, Magnesium 2.5 H, Total Bilirubin 0.7, AST 41 H, ALT 39, Alkaline Phosphatase 130, Total Protein 6.3, Albumin 3.5, Globulin 2.8, Albumin/Globulin Ratio 1.3 12/08/16 06:00: WBC 7.4, RBC 4.78, Hgb 15.6, Hct 45.1, MCV 94.4, MCH 32.6, MCHC 34.6, RDW 14.6 H, Plt Count 253, MPV 9.9, Gran % 65.3, Lymph % (Auto) 25.2, [place] % (Auto) 7.8 H, Eos % (Auto) 1.3 L, Baso % (Auto) 0.4, Gran # 4.83, Lymph # 1.9, [place] # 0.6, Eos # 0.1, Baso # 0.03 12/07/16 08:00: RPR Nonreactive 12/07/16 08:00: Free T4 0.95, TSH 3rd Generation 15.40 H 12/07/16 08:00: Fasting Glucose 98, Triglycerides 119, Cholesterol 170, LDL Cholesterol Direct 71, HDL Cholesterol 68 H Vital Signs Temp Pulse Resp BP Pulse Ox 12/08/16 09:46 122/75 12/08/16 07:42 97.9 F 95 H 20 122/75 12/08/16 00:50 88 12/07/16 16:10 107 H 136/86 12/07/16 08:41 132/86 12/07/16 07:36 98.8 F 95 H 20 132/86 12/07/16 06:40 16 12/07/16 04:29 98.8 F 101 H 18 112/76 99 Temp Pulse Resp BP Pulse Ox 98.5 F 79 20 134/82 20 L 12/09/16 07:37 12/09/16 07:37 12/09/16 07:37 12/09/16 09:40 12/09/16 07:37 Temp Pulse Resp BP Pulse Ox 98.0 F 83 16 131/69 20 L 12/13/16 08:11 12/13/16 08:11 12/13/16 08:11 12/13/16 09:08 12/09/16 07:37 Temp Pulse Resp BP Pulse Ox 97.5 F L 82 18 141/87 20 L 12/14/16 08:02 12/14/16 08:02 12/14/16 08:02 12/14/16 08:55 12/09/16 07:37 DSM 5 Symptoms Update: shortly patient is 41 years old female not known previous history of psychiatric history, not known previous psychiatric admissions, patient has some new group cognitive disorder, possible learning disabilities, patient currently under care of [facility] outpatient clinic, came to the emergency at [facility] saying that she "my head is not clear" patient presented to be disorganized, flat affect, in catatonic stage, patient was transferred to [facility] ([facility] because [facility] had no beds available. Patient needs to have further evaluation, stabilization, medications adjustment. pt was seen next to the nursing station, there is some positive changes with patient's presentation, patient is more responsive, more verbal, was more spontaneous. Patient said that her psychotic symptoms are better, mood is improving. Patient tolerates medication well, no side effects observed or reported, aims 0 , no EPS. As per nursing report patient is compliant with her medications no behavioral incident. Impression: Schizoaffective disorder Medication Change: No Medical Record Reviewed: Yes (notes, reports, labs, vitals) Consults ordered or reviewed: medical consult appreciated cardiology consult appreciated Pulmonology consult appreciated Mental Status Examination - Cognitive Function Orientation: Person, Place, Situation Memory: Impaired Attention: Poor (some improvement) Concentration: Poor (ssome improvement) Association: Loose Fund of Knowledge: WNL (some improvement) - Mood Mood: Depressed (better), Anxious - Affect Affect: Flat - Speech Speech: Appropriate (slow low-volume) - Formal Thought Process Formal Thought Process: Hallucinations (improving), Delusions (improving), Paranoia (improving) - Suicidal Ideation Suicidal Ideation: No - Homicidal Ideation Homicidal Ideation: No Goal/Treatment Plan - Goal/Treatment Plan Need for Continued Stay: Remain at risks for inpatient hospitalization, Severe depression anxiety, Discharge may exacerbated symptoms, Severe functional impairment Progress Toward Problem(s) and Goals/Treatment Plan: milieu, structure, supportive therapy Abilicitllayy was Geodon 80 mg twice a day for psychosis and mood stabilization Wellbutrin will be continued 300 mg daily Neurontin be continued 100 mg 3 times a day Ambien 5 mg as needed for insomnia Ativan 1 mg twice a day for catatonia Topamax will be continued 50milligrams twice a day Colace will be continued 100 mg twice a day Cyclobenzaprine [Cyclobenzaprine HCl] 10 mg PO TID will be continued Furosemide [Lasix] 20 mg PO DAILY will be continued K-Dur 20 mEq ER Tab 10 meq PO DAILY will be continued Levothyroxine [Synthroid] 112 mcg PO will be continued Montelukast [Singulair] 10 mg PO DAILY will be continued traZODone [Desyrel] 50 mg PO HS scheduled medical team evaluation appreciated pulmonology eval ppreciated ?neurology eval, pt has h/o migraine [facility] cardiology consult QTC prolongation, was cleared for consultation appreciated SW evaluation will monitor closely Estimated Date of D/C: 12/16/16 (we'll monitor closely)
[2016-12-15] MEDS: Fluticasone-Salmeterol 500-50mcg Diskus INH SCH (07:00)
[2016-12-15 07:29] VITALS: BP 118/76; PULSE 91; RESP 20; TEMP 98.1
[2016-12-15] MEDS: Levothyroxine 125 MCG TAB PO SCH (07:55)
[2016-12-15] MEDS: Potassium Chloride 10 mEq ER Tab PO SCH (08:13)
[2016-12-15] MEDS: buPROPion 300 mg/24 Hours XL Tab PO SCH (08:15)
[2016-12-15] MEDS: Fluticasone Nasal 50 mcg/Spray NS SCH ×2 (09:56→16:50)
--- NOTE | 2016-12-15 16:09 | PCM.PYCHDC ---
Mental Status Examination - Mental Status Examination Orientation: Person, Place, Situation, Time Memory: Intact Mood: Neutral Affect: Constricted (but reactive mood congruent) Speech: Appropriate Attention: WNL Concentration: WNL Association: WNL Fund of Knowledge: WNL Formal Thought Process: No Impairment Description of patient's judgement and insight: Pt has improved insight into mental and medical illness, pt was compliant with medications and unit rules and regulations, pt was going to groups, was calm, cooperative, socially appropriate, no behavioral incidents, no agitation, no aggression. Psychotic Thoughts and Behaviors: Pt denied v/a/t hallucinations, denied paranoid ideations, pt does not appear to be psychotic, and thought process is goal directed. Suicidal Ideation: No Current Homicidal Ideation?: No Plan: pt adamantly denied thoughts of harming self or others denied intent or plan. Discharge Summary - Discharge Note Reason for Hospitalization: pt was admitted for psychosis, inability to function, pt was on catatonic stage. Psychiatric History (includes Medical, Family, Personal Hx): see HPI Laboratory Data: 12/08/16 06:00 12/08/16 06:00 Lab Results 12/08/16 10:30: Total Bilirubin 0.6, Direct Bilirubin 0.3, AST 49 H, ALT 37, Alkaline Phosphatase 118, Total Protein 7.0, Albumin 3.9, Globulin 3.2, Albumin/ Globulin Ratio 1.2, Triglycerides 109, Cholesterol 159, LDL Cholesterol Direct 73, HDL Cholesterol 64 H 12/08/16 10:30: Hemoglobin A1c 5.5 12/08/16 10:30: Hepatitis A IgM Ab Negative, Hep Bs Antigen Negative, Hep B Core IgM Ab Negative, Hepatitis C Antibody Negative 12/08/16 06:00: Hemoglobin A1c 5.4 12/08/16 06:00: Sodium 142, Potassium 3.9, Chloride 112 H, Carbon Dioxide 22, Anion Gap 12, BUN 7, Creatinine 0.8, Est GFR ( Amer) > 60, Est GFR (Non- Af Amer) > 60, Random Glucose 93, Calcium 9.1, Phosphorus 3.4, Magnesium 2.5 H, Total Bilirubin 0.7, AST 41 H, ALT 39, Alkaline Phosphatase 130, Total Protein 6.3, Albumin 3.5, Globulin 2.8, Albumin/Globulin Ratio 1.3 12/08/16 06:00: WBC 7.4, RBC 4.78, Hgb 15.6, Hct 45.1, MCV 94.4, MCH 32.6, MCHC 34.6, RDW 14.6 H, Plt Count 253, MPV 9.9, Gran % 65.3, Lymph % (Auto) 25.2, [place] % (Auto) 7.8 H, Eos % (Auto) 1.3 L, Baso % (Auto) 0.4, Gran # 4.83, Lymph # 1.9, [place] # 0.6, Eos # 0.1, Baso # 0.03 12/07/16 08:00: RPR Nonreactive 12/07/16 08:00: Free T4 0.95, TSH 3rd Generation 15.40 H 12/07/16 08:00: Fasting Glucose 98, Triglycerides 119, Cholesterol 170, LDL Cholesterol Direct 71, HDL Cholesterol 68 H Vital Signs Temp Pulse Resp BP Pulse Ox 12/15/16 08:13 118/76 12/15/16 07:28 98.1 F 91 H 20 118/76 12/15/16 00:23 93 H 12/14/16 16:29 93 H 123/87 12/14/16 08:55 141/87 12/14/16 08:02 97.5 F L 82 18 141/87 12/14/16 00:14 84 12/13/16 16:00 84 126/81 12/13/16 09:08 131/69 12/13/16 08:11 98.0 F 83 16 131/69 12/13/16 08:00 97.5 F L 75 18 136/78 12/13/16 03:00 81 12/12/16 16:39 86 132/76 12/12/16 08:17 116/69 12/12/16 07:32 98.2 F 76 17 116/69 12/11/16 16:54 74 137/85 12/11/16 08:16 97.3 F L 77 20 115/74 12/11/16 08:04 115/74 12/10/16 16:00 77 116/83 12/10/16 08:17 127/78 12/10/16 07:00 97.9 F 83 20 127/78 12/09/16 19:52 77 18 123/84 12/09/16 09:40 134/82 12/09/16 07:37 98.5 F 79 20 134/82 20 L 12/08/16 15:52 79 123/76 12/08/16 09:46 122/75 12/08/16 07:42 97.9 F 95 H 20 122/75 12/08/16 00:50 88 12/07/16 16:10 107 H 136/86 12/07/16 08:41 132/86 12/07/16 07:36 98.8 F 95 H 20 132/86 12/07/16 06:40 16 12/07/16 04:29 98.8 F 101 H 18 112/76 99 Consultations:: List each consultation separately and include: 1. Reason for request. 2. Findings. 3. Follow-up Consultations: medical consult appreciated cardiology consult appreciated Pulmonology consult appreciated see notes for more detailed information Summary of Hospital Course include:: 1. Description of specific treatment plan utilized for patients during their course of treatmen. 2. Summarize the time- course for resolution of acute symptoms and/or regressed behaviors. 3. Describe issues identified and worked on during hospitalization. 4. Describe medication utilized. 5. Describe medical problems identified and treated. 6. Reassessment of suicide risk Summary of Hospital Course: shortly patient is 41 years old female not known previous history of psychiatric history, not known previous psychiatric admissions, patient has some new group cognitive disorder, possible learning disabilities, patient currently under care of [facility] outpatient clinic, came to the emergency at [facility] saying that she "my head is not clear" patient presented to be disorganized, flat affect, in catatonic stage, patient was transferred to [facility] because [facility] had no beds available. Patient needs to have further evaluation, stabilization, medications adjustment. at the time of admission pt presented in catatonic stage, flat affect, had difficulties to express herself, pt also has poverty of speech and thoughts, thought blocking. pt obviously has neurocognitive deficit and some learning disabilities, pt was going to special ED class. Lab Results 12/07/16 08:00: Free T4 0.95, TSH 3rd Generation 15.40 H 12/07/16 08:00: Fasting Glucose 98, Triglycerides 119, Cholesterol 170, LDL Cholesterol Direct 71, HDL Cholesterol 68 H Vital Signs Temp Pulse Resp BP Pulse Ox 12/07/16 08:41 132/86 12/07/16 07:36 98.8 F 95 H 20 132/86 12/07/16 06:40 16 12/07/16 04:29 98.8 F 101 H 18 112/76 99 patient was stabilized on the following medications: Abilify was discontinued Geodon we'll slowly titrated to 80 mg twice a day for psychosis and mood stabilization Wellbutrin was continued 300 mg daily Neurontin he was [id number] mg 3 times a day Ambien 5 mg as needed for insomnia Ativan 1 mg twice a day for catatonia Topamax was continued 50milligrams twice a day traZODone [Desyrel] 50 mg PO HS was continued Patient was seen by medical team, please see moredetailedinformation Patient tolerated medications well,no side effects observed or reported,aims0, no EPS. Over the course of this hospitalization pt was attending groups, pt also had medication management, had therapeutic milieu. Overall pt improved significantly, pt's affect became brighter, pt was less depressed, has realistic future oriented plans, pt also does not appear to be psychotic, or anxious, pt was socially appropriate, no behavioral issues, pts insight improved as well and soon pt deemed to be ready for discharge. At the time of the discharge pt denied been depressed, denied thoughts of harming self or others, denied psychotic symptoms, and pt does not appeared to be psychotic, denied been anxious, was considered to pose no threat to self or others, will be following up at [facility] outpatient clinic, information about follow up appointment, time and address provided to the pt, it is patient responsibility to follow up with outpatient clinic, PMD as well as specialists ( see note for more detailed information). In case pt will need to obtain results of studies pending at discharge pt was provided with contact information of Psychiatric Inpatient unit [phone] as well as Medical Record Department [phone]. Nicotine patch was offered Counseling about smoking and alcohol cessation provided AA meetings as well [place] [facility] [place] information was provided by the pt was provided with prescriptions for all of medications (please see medication reconciliation form) Pt was educated about safety plan in case of worsening of symptoms or in case of suicidal or homicidal ideation call 911 or go to the nearest ER, also was educated to take meds as prescribed and stay away from drugs, pt verbalized understanding. - Diagnosis (1) Schizophrenia Current Visit: No Status: Acute - Final Diagnosis (DSM 5) Condition upon Discharge: FAIR Disposition: HOME/ ROUTINE Follow-up Treatment Plan: At the time of the discharge pt denied been depressed, denied thoughts of harming self or others, denied psychotic symptoms, and pt does not appeared to be psychotic, denied been anxious, was considered to pose no threat to self or others, will be following up at [facility] outpatient clinic, information about follow up appointment, time and address provided to the pt, it is patient responsibility to follow up with outpatient clinic, PMD as well as specialists ( see note for more detailed information). In case pt will need to obtain results of studies pending at discharge pt was provided with contact information of Psychiatric Inpatient unit [phone] as well as Medical Record Department [phone]. Nicotine patch was offered Counseling about smoking and alcohol cessation provided AA meetings as well as [facility] [place] information was provided by the pt was provided with prescriptions for all of medications (please see medication reconciliation form) Pt was educated about safety plan in case of worsening of symptoms or in case of suicidal or homicidal ideation call 911 or go to the nearest ER, also was educated to take meds as prescribed and stay away from drugs, pt verbalized understanding. Prescriptions/Medication Reconciliation: Albuterol HFA [Ventolin HFA 90 mcg/actuation (8 g)] 2 puff IH [id number] PRN #1 inhaler PRN Reason: Wheezing buPROPion XL [Wellbutrin XL] 300 mg PO DAILY #14 t24 Cyclobenzaprine [Flexeril] 10 mg PO TID #20 tab Fluticasone Nasal [Flonase] 1 actuation NS BID #1 spr Fluticasone/Salmeterol 500/50 [Advair Diskus 500/50] 1 puff INH Q12 #1 puff Furosemide [Lasix] 20 mg PO DAILY #14 tab Gabapentin [Neurontin] 100 mg PO TID #20 cap Levothyroxine [Synthroid] 125 mcg PO ACB #7 tab LORazepam [Ativan] 1 mg PO TID #20 tab Montelukast [Singulair] 10 mg PO HS #7 tab Nicotine 21 mg/24 hr [Nicoderm Cq] 1 patch TD DAILY 14 Days Potassium Chloride [Klor-Con 10] 10 meq PO BRK #7 ter Topiramate [Topamax] 50 mg PO BID 14 Days traZODone [Desyrel] 50 mg PO HS #14 tab Ziprasidone [Geodon Cap] 80 mg PO DAILY #14 cap Ziprasidone [Geodon Cap] 80 mg PO 1700 #14 cap Zolpidem [Ambien] 5 mg PO HS PRN #14 tab PRN Reason: Insomnia - Smoking Cessation Smoking Cessation Medication prescribed: Yes - Antipsychotic Medications Pt discharged on 2 or more routine antipsychotic medications: No
--- NOTE | 2016-12-15 21:52 | PN ---
DATE: 12/15/2016 REFERRING PHYSICIAN: Dr. Tonie Tavares. SUBJECTIVE: She is out of bed to chair, wheeling herself in the hallway. Night was unremarkable. To lerated CPAP well. Doing well on bronchodilators. No nausea, vomiting, diarrhea. No leg pain or le g swelling. OBJECTIVE: GENERAL: No acute distress. VITAL SIGNS: Temp is 98, heart rate is 90, respiratory rate is 20, blood pressure 118/76. HEENT: Moist mucous membrane. Crowded airway. Mallampati score is 4. NECK: Supple. No JVD. LUNGS: Have a fair airflow with few rhonchi. HEART: S1, S2. ABDOMEN: Soft, nontender. No organomegaly. EXTREMITIES: There is no edema. NEUROLOGIC: Awake, alert, follows simple commands. MEDICATIONS: Reviewed. No new changes. LABORATORY DATA: Reviewed. No new lab is available since yesterday. IMPRESSION AND PLAN: Schizophrenia, morbid obesity, sleep apnea syndrome, chronic lung disease, hypo thyroid. Continue current CPAP use, bronchodilator. Fall precautions. Upon discharge, will need at tended sleep study as outpatient. The patient is urged to stop smoking. Continue bronchodilator and PFT as outpatient. Thank you and we will follow with you. Lefty Phipps MD cc: [phone] TT: 12/15/2016 21:52:07 Confirmation # [id number] Dictation # [id number]
== END 2016-12-15 17:28 | disposition home or self-care (01) | DRG 430 ==
LOC: ED 04:18 → ERH 04:26 → PSYC 05:35
PROVIDERS: ADMIT Psychiatry & Neurology Psychiatry; ATTEND Psychiatry & Neurology Psychiatry
PROC: GZ3ZZZZ Medication Management (ICD-10-PCS; principal; 2016-12-07)
PROC: 5A09357 Assistance with Respiratory Ventilation, Less than 24 Consecutive Hours, Continuous Positive Airway Pressure (ICD-10-PCS; 2016-12-08)
DX: F25.9 Schizoaffective disorder, unspecified (principal); Z68.42 Body mass index [BMI] 45.0-49.9, adult; I10 Essential (primary) hypertension; J44.9 Chronic obstructive pulmonary disease, unspecified; E11.9 Type 2 diabetes mellitus without complications; F43.10 Post-traumatic stress disorder, unspecified; F41.9 Anxiety disorder, unspecified; E05.00 Thyrotoxicosis with diffuse goiter without thyrotoxic crisis or storm; K21.9 Gastro-esophageal reflux disease without esophagitis; E03.9 Hypothyroidism, unspecified; G47.33 Obstructive sleep apnea (adult) (pediatric); R26.81 Unsteadiness on feet; M79.7 Fibromyalgia; E66.01 Morbid (severe) obesity due to excess calories; J31.0 Chronic rhinitis; M19.90 Unspecified osteoarthritis, unspecified site; F17.210 Nicotine dependence, cigarettes, uncomplicated; G43.909 Migraine, unspecified, not intractable, without status migrainosus